=== PATIENT | male | born 1940 | race Caucasian/White ===

== ENCOUNTER 2018-01-02 14:47 | Observation (INO) | payer MEDICARE, OTHER ==
--- NOTE | 2018-01-02 15:33 | PCM.HP ---
H&P History of Present Illness - General Date of Service: 01/02/18 Source of Information: Patient, Old Records - History of Present Illness Initial Comments - Free Text/Narative: 77 yo male, h/o HTN, CLL, BPH, presents with 3 days of abdominal pain, which started vague, but soon localized to the RLQ. Pain has gotten progressively worse. Denies nausea/emesis. Has had subjective fevers and chills. Denies diarrhea/constipation. Patient was seen in the [facility], where a CT scan was obtained, demonstrating appendicitis. He was then transferred to [facility] to undergo surgical evaluation. Last meal was last night (over 12 hours ago). Last colonoscopy was in 2014 (per patient's , was normal). Right Lower Abdomen Pain Score (Numeric/FACES): 6 - Related Data Allergies/Adverse Reactions: Allergies Allergy/AdvReac Type Severity Reaction Status Date / Time No Known Allergies Allergy Verified 01/02/18 14:53 Home Medications: Home Meds Aspirin [Ecotrin] 81 mg PO DAILY 01/02/18 [History] Calcium Carbonate [Calcium] 1,250 mg PO DAILY 01/02/18 [History] Carvedilol [Coreg] 3.125 mg PO BID 01/02/18 [History] Dutasteride [Avodart] 0.5 mg PO DAILY 01/02/18 [History] Flaxseed 1 dose PO DAILY 01/02/18 [History] Lactobacillus Acidophilus [Acidophilus Lactobacillus] 1 tab PO DAILY 01/02/18 [ History] Lutein 20 mg PO DAILY 01/02/18 [History] Omeprazole 20 mg PO DAILY 01/02/18 [History] Psyllium [Metamucil] 1 dose PO BEDTIME 01/02/18 [History] Rosuvastatin [Crestor] 5 mg PO ASDIRECTED 01/02/18 [History] Tamsulosin [Flomax] 2 tab PO DAILY 01/02/18 [History] Ubidecarenone [Co Q-10] 200 mg PO DAILY 01/02/18 [History] Past Medical History Cardiovascular History: Reports: Heart Failure (mild CHF), Hypertension, DC ( patient denies) Gastrointestinal History: Reports: GERD Genitourinary History: Reports: BPH Oncologic (Cancer) History: Reports: Leukemia (CLL) Other Oncologic History: CLL - Past Surgical History HEENT Surgical History: Reports: Other (See Below) Other HEENT Surgeries/Procedures: eye surgery GI Surgical History: Reports: Colonoscopy (2014 (patient's reports was normal)), EGD, Hernia, Inguinal (LEFT INGUINAL HERNIA REPAIR), Hernia Repair/ Other (UMBILICAL HERNIA REPAIR X2 (2014, 2003)) Other GI Surgeries/Procedures: ventral and umbilical hernias Musculoskeletal Surgical History: Reports: Shoulder Surgery (LEFT shouder arthroscopy) Social & Family History - Tobacco Use Smoking Status *Q: Former Smoker (QUIT OVER 50 YEARS AGO.) Used Tobacco, but Quit: Yes Month/Year Tobacco Last Used: 1965 - Caffeine Use Caffeine Use: Reports: None - Alcohol Use Alcohol Use History: No - Recreational Drug Use Recreational Drug Use: No - Living Situation & Occupation Living situation: Reports: , with Family (LIVES WITH .) H&P Review of Systems - Review of Systems: Review Of Systems: ROS reveals no pertinent complaints other than HPI. Exam - Exam Exam: See Below - Vital Signs Vital Signs: Last Vital Signs Temp 37.1 C 01/02/18 14:51 Pulse 88 01/02/18 14:51 Resp 18 01/02/18 14:51 BP 138/63 01/02/18 14:51 Pulse Ox 95 01/02/18 14:51 Weight: 83.461 kg - Exam General: Alert, Oriented, Cooperative HEENT: Conjunctiva Clear Neck: Supple. No: Lymphadenopathy Lungs: Clear to Auscultation, Normal Respiratory Effort Cardiovascular: Regular Rate, Regular Rhythm, Normal S1, Normal S2. No: Systolic Murmur GI/Abdominal Exam: Soft, No Distention, Tender (TENDER TO THE RLQ), Other (WELL- HEALED SURGICAL SCAR TO THE UMBILICUS) Extremities: Normal Inspection, No Pedal Edema Neuro Extensive - Mental Status: Alert, Oriented x3, Normal Mood/Affect, Normal Cognition, Memory Intact Psychiatric: Alert, Normal Affect, Normal Mood - Patient Data Lab Results Last 24 hrs: Labs from [facility] Glucose 102 BUN 15 Cr 1.0 Na 136 K 4.4 Cl 101 CO2 27 Ca 8.3 WBC 24 (baseline in November 2017 was 17.2) Hb 14.6 Hct 44 Plt 150 Abs Lymph 13 (H) Abs Seg Neut 9.5 (H) Imaging Impressions Last 24 hrs: CT scan Abd/pelvis with IV contrast: Dilated and distended appendix with proximal fecalith. Problem List Initiated/Reviewed/Updated: Yes Assessment/Plan Comment:: 77 yo male, h/o HTN, CHF, BPH, CLL (baseline WBC was 17k, today was 24k), GERD, presents with acute appendicitis. CT scan reviewed, which demonstrates findings consistent with appendicitis. Also, umbilical hernia containing bowel. - Patient was consented for laparoscopic appendectomy, possible open. Indications, risks, and benefits were discussed with the patient in detail. Risks include bleeding, infection, damage to surrounding structures, need for additional procedures, DVT/PE, DC, CVA, and . - NPO, IV fluids, IV cefoxitin confectionery cooker to the OR. - Given h/o CLL, will administer heparin 5000 units SQ pre-operatively for VTE prophylaxis. Will also have SCD's. - Patient also with umbilical hernia, with evidence of bowel in the hernia sac on CT scan. Patient without pain tenderness at umbilical hernia. No indication for emergent repair. This can be managed after resolution of his appendicitis and recovery post-op. 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 Patient does not able to walk up two flights of stairs without CP/SOB. He denies h/o DC/CVA. Fermin Chinchilla M.D., F.A.C.S General Surgery Pager: [phone]
[2018-01-02] MEDS ORDERED: Famotidine 20 MG/2 ML SDV IVPUSH ONE (15:42)
[2018-01-02] MEDS ORDERED: Metoclopramide 10 MG/2 ML SDV IVPUSH ONE (15:43)
[2018-01-02] MEDS ORDERED: Lactated Ringers 1,000 ML IV ONE (15:43)
[2018-01-02] MEDS ORDERED: cefOXitin 2 GM in Premix Bag 1 BAG IV ONE (16:08)
--- NOTE | 2018-01-02 16:08 | PCM.PREANE ---
Preanesthetic Assessment - Anesthesia/Transfusion/Family Hx Anesthesia History: Prior Anesthesia Reaction Type of Anesthesia Reaction: Urinary Retention (With all previous surgeries. Self caths at home. ) Family History of Anesthesia Reaction: No Transfusion History: No Prior Transfusion(s) Intubation History: Unknown - Review of Systems General: Fatigue, Malaise, Appetite Pulmonary: No Symptoms Cardiovascular: Lightheadedness (One spell in June. Went through a work up with Dr. Tinajero. Everything was negative. Hasn't had a spell since. ), Other ( Patient states he has mild CHF. Has had a negative stress test. ) Gastrointestinal: Abdominal Pain, Decreased Appetite, Nausea Neurological: No Symptoms Other: Reports: None - Physical Assessment NPO Status Date: 01/01/18 NPO Status Time: 18:00 (Contrast at 1400 ) O2 Sat by Pulse Oximetry: 95 Respiratory Rate: 18 Vital Signs: Last Vital Signs Temp 37.1 C 01/02/18 14:51 Pulse 88 01/02/18 14:51 Resp 18 01/02/18 14:51 BP 138/63 01/02/18 14:51 Pulse Ox 95 01/02/18 14:51 Height: 1.83 m Weight: 83.461 kg ASA Class: 3E Mental Status: Alert & Oriented x3 Airway Class: Mallampati = 2 Dentition: Reports: Normal Dentition Thyro-Mental Finger Breadths: 3 Mouth Opening Finger Breadths: 3 ROM/Head Extension: Full Lungs: Clear to Auscultation, Normal Respiratory Effort Cardiovascular: Regular Rate, Regular Rhythm - Lab Values: From [place]. Reviewed. - Imaging/EKG Impressions: SR with LBBB - Allergies Allergies/Adverse Reactions: Allergies Allergy/AdvReac Type Severity Reaction Status Date / Time No Known Allergies Allergy Verified 01/02/18 14:53 - Anesthesia Plan Beta Yesica: Carvedilol Med Last Dose Date: 01/01/18 Med Last Dose Time: 09:00 - Acknowledgements Anesthesia Type Planned: General Anesthesia Pt an Appropriate Candidate for the Planned Anesthesia: Yes Alternatives and Risks of Anesthesia Discussed w Pt/Guardian: Yes Pt/Guardian Understands and Agrees with Anesthesia Plan: Yes Additional Comments: Dr. Carney notified of EF of 39% noted on report for 2014. Patient states he has great functional capacity. Can walk two flights of stairs. Denies chest pain. Dr. Carney wishes to proceed. Patient wishes to proceed. PreAnesthesia Questionnaire Oncologic (Cancer) History: Reports: Leukemia Other Oncologic History: CLL - Past Surgical History HEENT Surgical History: Reports: Other (See Below) Other HEENT Surgeries/Procedures: eye surgery GI Surgical History: Reports: Colonoscopy, EGD, Hernia Repair/Other Other GI Surgeries/Procedures: ventral and umbilical hernias Musculoskeletal Surgical History: Reports: Shoulder Surgery - SUBSTANCE USE Smoking Status *Q: Former Smoker Recreational Drug Use History: No - HOME MEDS Home Medications: Home Meds Aspirin [Ecotrin] 81 mg PO DAILY 01/02/18 [History] Calcium Carbonate [Calcium] 1,250 mg PO DAILY 01/02/18 [History] Carvedilol [Coreg] 3.125 mg PO BID 01/02/18 [History] Dutasteride [Avodart] 0.5 mg PO DAILY 01/02/18 [History] Flaxseed 1 dose PO DAILY 01/02/18 [History] Lactobacillus Acidophilus [Acidophilus Lactobacillus] 1 tab PO DAILY 01/02/18 [ History] Lutein 20 mg PO DAILY 01/02/18 [History] Omeprazole 20 mg PO DAILY 01/02/18 [History] Psyllium [Metamucil] 1 dose PO BEDTIME 01/02/18 [History] Rosuvastatin [Crestor] 5 mg PO ASDIRECTED 01/02/18 [History] Tamsulosin [Flomax] 2 tab PO DAILY 01/02/18 [History] Ubidecarenone [Co Q-10] 200 mg PO DAILY 01/02/18 [History] - CURRENT (IN HOUSE) MEDS Current Meds: Current Medications Lactated Ringer's (Ringers, Lactated) 1,000 mls @ 999 mls/hr IV .BOLUS ONE Stop: 01/02/18 16:43 Discontinued Medications Famotidine (Pepcid) 20 mg IVPUSH ONETIME ONE Stop: 01/02/18 15:43 Metoclopramide HCl (Reglan) 5 mg IVPUSH ONETIME ONE Stop: 01/02/18 15:44
[2018-01-02] MEDS ORDERED: Heparin Sodium 5,000 Units/ML Vial SUBCUT ONE (16:09)
[2018-01-02] MEDS ORDERED: Lactated Ringers 1,000 ML ONE (16:16)
[2018-01-02] MEDS ORDERED: Bupivacaine 0.5% 30 ML SDV ONE (16:16)
[2018-01-02] MEDS ORDERED: Lidocaine 1% with EPINEPHrine 1:100,000 20 ML MDV ONE (16:16)
[2018-01-02] MEDS ORDERED: Propofol 200 MG/20 ML SDV ONE (16:16)
[2018-01-02] MEDS ORDERED: fentaNYL 250 MCG/5 ML SDV ONE (16:16)
[2018-01-02] MEDS ORDERED: Neostigmine Methylsulfate 1 MG/ML 5 ML Syringe ONE (17:19)
[2018-01-02] MEDS ORDERED: Dexamethasone 4 MG/ML 5 ML MDV ONE (17:19)
[2018-01-02] MEDS ORDERED: Rocuronium 50 MG/5 ML Vial ONE (17:19)
[2018-01-02] MEDS ORDERED: Phenylephrine/Normal Saline 100 MCG/ML 10 ML Syringe ONE (17:19)
[2018-01-02] MEDS ORDERED: Lidocaine 1% 4 ML ONE (17:19)
[2018-01-02] MEDS ORDERED: Succinylcholine/Normal Saline 100 MG/5 ML Syringe ONE (17:19)
[2018-01-02] MEDS ORDERED: Ondansetron 4 MG/2 ML SDV ONE (17:19)
[2018-01-02] MEDS ORDERED: Ondansetron 4 MG/2 ML SDV IVPUSH PRN (17:20)
[2018-01-02] MEDS ORDERED: diphenhydrAMINE 50 MG/ML SDV IVPUSH PRN (17:20)
[2018-01-02] MEDS ORDERED: fentaNYL 100 MCG/2 ML SDV IVPUSH PRN (17:20)
[2018-01-02] MEDS ORDERED: HYDROmorphone 0.5 MG/0.5 ML Syringe IVPUSH PRN (17:30)
[2018-01-02] MEDS ORDERED: HYDROmorphone 0.5 MG/0.5 ML Syringe ONE (18:16)
[2018-01-02] MEDS ORDERED: Metoprolol Tartrate 5 MG/5 ML SDV ONE (18:25)
--- NOTE | 2018-01-02 18:41 | PCM.POSTAN ---
POST ANESTHESIA ASSESSMENT - MENTAL STATUS Mental Status: Alert, Oriented - VITAL SIGNS Pulse Rate: 70 SaO2: 96 Resp Rate: 13 Blood Pressure: 128/70 Temperature: 37.3 C - RESPIRATORY Respiratory Status: Respiratory Rate WNL, Airway Patent, O2 Saturation Stable, Supplemental Oxygen - CARDIOVASCULAR CV Status: Pulse Rate WNL, Blood Pressure Stable - GASTROINTESTINAL GI Status: No Symptoms - PAIN Pain Score: 0 - POST OP HYDRATION Hydration Status: Adequate & Stable
[2018-01-02] MEDS ORDERED: HYDROmorphone 0.5 MG/0.5 ML SYRINGE IVPUSH PRN (18:52)
--- NOTE | 2018-01-02 18:57 | PCM.OPNOTE ---
- General Post-Op/Procedure Note Date of Surgery/Procedure: 01/02/18 Operative Procedure(s): laparoscopic appendectomy Findings: Inflamed and thickened appendix, without obvious perforation. Thickened and inflamed mesoappendix was divided using Ligasure. Oozing from the mesoappendiceal stump (hemostasis with Ligasure and Surgicel). A 3x3 cm umbilical hernia, without incarceration/obstruction. Pre Op Diagnosis: acute appendicitis Post-Op Diagnosis: acute appendicitis Anesthesia Technique: General LMA Primary Surgeon: Fermin Chinchilla Anesthesia Provider: Mercedez Damon Pathology: Appendix Fluid Replacement, Intraop: 1,500 (crystalloid) Output, Urine Amount: 350 EBL in mLs: 100 Complications: None Condition: Good Free Text/Narrative:: Indications for surgery: The patient is a 77 yo male, h/o CLL, HTN, HLD, GERD, who presents with worsening abdominal pain over the past [address] scan revealed evidence of appendiceal inflammation, as well as an umbilical hernia containing bowel (The patient had two prior umbilical hernia repairs). The patient was consented for laparosocpic appendectomy, possible open. possible other indicated procedures. Indications, risks, and benefits were discussed with the patient in detail. Description of procedure: After surgical consent was verified, the patient was brought to the main OR. Anesthesia performed general endotracheal intubation without complications. Appropriate padding and straps were placed. SCD's were on and functioning. Perioperative anitbiotic (cefoxitin IV) was administered. Given his history of CLL, a perioperatiev dose of SQ heparin 5000 units was given for VTE prophylaxis. A Daley catheter and OG tube were inserted. A surgical time-out was performed to verify proper patient, proper site, and proper procedure. Local anesthetic (1:1 solution of 1% lidocaine with epinephrine) was injected at Yee's point in the LUQ. A 5 mm incision was made, and a Veress needle was inserted. The abdomen was insufflated to 15 mmHg without complications. Using the Optview technique, a 5 mm trocar was inserted. The laparoscope was inserted , and there was no evidence of intra-abdominal injury from trocar placement. Additional trocars were placed: a 12 mm trocar in the left lower quadrant and a 5 mm trocar in the suprapubic region. The abdomen was inspected and there was no evidence of bowel adhesed to the hernia sac. The hernia sac at the umbilical region could be seen laparoscopically, and the defect was estimated to be about 3 cm in diameter, round. There was also evidence of mesh and tacks in the LEFT inguinal region, seen laparoscopically. The patient was re-positioned to Trendelenburg with LEFT side down. The appendix was identified and noted to be thickened and inflamed, without obvious evidence of perforation. There were inflammatory adhersions which were bluntly taken down to mobilize the appendix. A window was made in the mesoappendix at the appendiceal base. A 35 mm blue load laparoscopic stapler was used to divide the appendiceal base. The mesoappendix was notably thickened and inflamed, so the decision was made to divide the mesoappendix with a Ligasure device. The mesoappendiceal stump had some bleeding, which was initially challenging to control. Hemostasis was eventually achieved with Ligasure, along with placement of Surgicel. The appendix was placed in an Endocatch bag and removed through the 12 mm trocar site. Light irritation was performed, and all intra-abdominal fluid and blood was suctioned out. The pelvis was inspected, and excess fluid was suctioned out. The 12 mm trocar site was closed with an interrupted 0-Vicryl suture x2 via a transfascial suture passer. Remaining local anesthetic was injected at the trocar sites (total used througout the case was 20 cc). The suprapubic trocar was removed under direct visualization, and the abdomen was allowed to desufflate. The skin was closed with interrupted 4-0 Monocryl and covered with Dermabond. The patient tolerated the procedure well, was extubated, and transported to the PACU in stable condition. At the end of the case, all needle, instrument, and gauze counts were correct. The Daley catheter and OG tube were removed. The appendix was inspected on the back table, and it appeared thickened and injected , without discrete mass. A fecalith could be palpated at the proximal aspect of the appendix. I was presented and scrubbed for the entirety of the case. Fermin Chinchilla M.D., F.A.C.S. General Surgery Pager: [phone]
[2018-01-02] MEDS: cefOXitin 2 GM in Premix Bag 1 BAG IV SCH (23:08)
[2018-01-03] MEDS: cefOXitin 2 GM in Premix Bag 1 BAG IV SCH ×2 (06:07→11:52)
[2018-01-03] MEDS: Acetaminophen/oxyCODONE 325-5 MG Tab PO PRN ×2 (06:59→13:32)
--- NOTE | 2018-01-03 10:11 | PCM.DCSUM1 ---
Discharge Summary - Hospital Course Free Text/Narrative:: 77 yo male, h/o CLL, HTN, BPH, presents with acute appendicitis, taken to the OR for urgent laparoscoipc appendectomy on 02Jan2018. He did well post- operatively and was discharged home on POD#1 (03Jan2018). Diagnosis: Stroke: No Modified Gilberto Scale: No Symptoms at All Modified Camuy Scale Score: 0 - Discharge Data Discharge Date: 01/03/18 Discharge Disposition: Home, Self-Care 01 Condition: Good - Patient Summary/Data Operative Procedure(s) Performed: laparoscopic appendectomy Recommended Follow-up Testing/Procedures: Colonoscopy - schedule in about 2-3 months - Patient Instructions Diet: Regular Diet as Tolerated Activity: No Lifting Over 10 Pounds, No Strenuous Activities Driving: Do Not Drive (Until off all pain medication.) Showering/Bathing: May Shower, No Tub Bathing/Swimming - Discharge Plan Prescriptions/Med Rec: Docusate Sodium [Colace] 100 mg PO BID #30 cap oxyCODONE HCl/Acetaminophen [Percocet 5-325 mg Tablet] 1 each PO Q4H PRN #30 tablet PRN Reason: Pain Home Medications: Home Meds Aspirin [Ecotrin] 81 mg PO DAILY 01/02/18 [History] Calcium Carbonate [Calcium] 1,250 mg PO DAILY 01/02/18 [History] Carvedilol [Coreg] 3.125 mg PO BID 01/02/18 [History] Dutasteride [Avodart] 0.5 mg PO DAILY 01/02/18 [History] Flaxseed 1 dose PO DAILY 01/02/18 [History] Lactobacillus Acidophilus [Acidophilus Lactobacillus] 1 tab PO DAILY 01/02/18 [ History] Lutein 20 mg PO DAILY 01/02/18 [History] Omeprazole 20 mg PO DAILY 01/02/18 [History] Psyllium [Metamucil] 1 dose PO BEDTIME 01/02/18 [History] Rosuvastatin [Crestor] 5 mg PO ASDIRECTED 01/02/18 [History] Tamsulosin [Flomax] 2 tab PO DAILY 01/02/18 [History] Ubidecarenone [Co Q-10] 200 mg PO DAILY 01/02/18 [History] Docusate Sodium [Colace] 100 mg PO BID #30 cap 01/03/18 [Rx] oxyCODONE HCl/Acetaminophen [Percocet 5-325 mg Tablet] 1 each PO Q4H PRN #30 tablet 01/03/18 [Rx] Forms: ED Department Discharge Referrals: Aroldo Tinajero MD [Primary Care Provider] - Fermin Chinchilla MD [Emergency Provider] - (Schedle an appointment in one week ([place], 10Jan2018).) - Discharge Summary/Plan Comment DC Time >30 min.: Yes - General Info Date of Service: 01/03/18 Subjective Update: No acute overnight events. Patient reports improvement in pain compared to before surgery. He tolerated liquids this morning well. He desires solid food. - Patient Data Vitals - Most Recent: Last Vital Signs Temp 36.4 C 01/03/18 08:44 Pulse 69 01/03/18 08:44 Resp 18 01/03/18 08:44 BP 102/61 01/03/18 08:44 Pulse Ox 95 01/03/18 08:44 Weight - Most Recent: 84.623 kg I&O - Last 24 hours: Intake & Output 01/02/18 01/03/18 01/03/18 22:59 06:59 14:59 Intake Total 50 1700 Output Total 425 750 Balance -375 950 Med Orders - Current: Current Medications Diphenhydramine HCl (Benadryl) 25 mg IVPUSH Q6H PRN PRN Reason: Pruritis Fentanyl (Sublimaze) 50 mcg IVPUSH Q5M PRN PRN Reason: Pain Hydromorphone HCl (Dilaudid) 0.5 mg IVPUSH ASDIRECTED PRN PRN Reason: SEVERE PAIN Hydromorphone HCl (Dilaudid) 0.4 mg IVPUSH Q2H PRN PRN Reason: Pain Cefoxitin Sodium 2 gm/ Premix 50 mls @ 100 mls/hr IV Q6HR OLGA LIDIA Last Admin: 01/03/18 06:07 Dose: 100 mls/hr Ondansetron HCl (Zofran) 4 mg IVPUSH ONETIME PRN PRN Reason: Nausea/Vomiting Last Admin: 01/02/18 23:09 Dose: 4 mg Oxycodone/Acetaminophen (Percocet 325-5 Mg) 1 tab PO Q4H PRN PRN Reason: Pain Last Admin: 01/03/18 06:59 Dose: 1 tab Discontinued Medications Bupivacaine HCl (Marcaine 0.5%) Confirm Administered Dose 30 ml .ROUTE .STK-MED ONE Stop: 01/02/18 16:17 Last Admin: 01/02/18 17:03 Dose: 30 ml Dexamethasone (Dexamethasone) Confirm Administered Dose 20 mg .ROUTE .STK-MED ONE Stop: 01/02/18 17:20 Famotidine (Pepcid) 20 mg IVPUSH ONETIME ONE Stop: 01/02/18 15:43 Last Admin: 01/02/18 16:01 Dose: 20 mg Fentanyl (Sublimaze) Confirm Administered Dose 250 mcg .ROUTE .STK-MED ONE Stop: 01/02/18 16:17 Glycopyrrolate () Confirm Administered Dose 1 mg .ROUTE .STK-MED ONE Stop: 01/02/18 17:20 Heparin Sodium (Porcine) (Heparin Sodium) 5,000 units SUBCUT ONETIME ONE Stop: 01/02/18 16:10 Last Admin: 01/02/18 16:35 Dose: 5,000 units Hydromorphone HCl (Dilaudid) Confirm Administered Dose 0.5 mg .ROUTE .STK-MED ONE Stop: 01/02/18 18:17 Lactated Ringer's (Ringers, Lactated) 1,000 mls @ 999 mls/hr IV .BOLUS ONE Stop: 01/02/18 16:43 Last Admin: 01/02/18 15:58 Dose: 999 mls/hr Cefoxitin Sodium 2 gm/ Premix 50 mls @ 100 mls/hr IV ONETIME ONE Stop: 01/02/18 16:37 Last Admin: 01/02/18 16:33 Dose: 100 mls/hr Lactated Ringer's (Ringers, Lactated) Confirm Administered Dose 1,000 mls @ as directed .ROUTE .STK-MED ONE Stop: 01/02/18 16:17 Lidocaine HCl (Xylocaine-Mpf 1%) Confirm Administered Dose 4 mls @ as directed .ROUTE .STK-MED ONE Stop: 01/02/18 17:20 Lidocaine/Epinephrine (Xylocaine 1% With Epinephrine 1:100,000) Confirm Administered Dose 20 ml .ROUTE .STK-MED ONE Stop: 01/02/18 16:17 Last Admin: 01/02/18 17:03 Dose: 20 ml Metoclopramide HCl (Reglan) 5 mg IVPUSH ONETIME ONE Stop: 01/02/18 15:44 Last Admin: 01/02/18 15:59 Dose: 5 mg Metoprolol Tartrate (Lopressor) Confirm Administered Dose 5 mg .ROUTE .STK-MED ONE Stop: 01/02/18 18:26 Neostigmine Methylsulfate (Neostigmine) Confirm Administered Dose 5 mg .ROUTE .STK-MED ONE Stop: 01/02/18 17:20 Ondansetron HCl (Zofran) Confirm Administered Dose 4 mg .ROUTE .STK-MED ONE Stop: 01/02/18 17:20 Phenylephrine HCl (Phenylephrine In Ns 100 Mcg/Ml) Confirm Administered Dose 1 mg .ROUTE .STK-MED ONE Stop: 01/02/18 17:20 Propofol (Diprivan 20 Ml) Confirm Administered Dose 400 mg .ROUTE .STK-MED ONE Stop: 01/02/18 16:17 Rocuronium [place] (Zemuron) Confirm Administered Dose 50 mg .ROUTE .STK-MED ONE Stop: 01/02/18 17:20 Succinylcholine Chloride (Succinylcholine In Ns Pf) Confirm Administered Dose 100 mg .ROUTE .STK-MED ONE Stop: 01/02/18 17:20 - Exam General: Reports: Alert, Oriented GI/Abdominal Exam: Soft, Tender (appropriate post-op tenderness), Other ( incisions C/D/I with Dermabond) Skin: Reports: Warm, Intact
--- NOTE | 2018-01-03 10:27 | PCM48HPAN ---
Post Anesthesia Note - EVALUATION WITHIN 48HRS OF ANESTHETIC Vital Signs in Normal Range: Yes Patient Participated in Evaluation: Yes Respiratory Function Stable: Yes Airway Patent: Yes Cardiovascular Function Stable: Yes Hydration Status Stable: Yes Pain Control Satisfactory: Yes Nausea and Vomiting Control Satisfactory: Yes Mental Status Recovered: Yes - COMMENTS/OBSERVATIONS Free Text/Narrative:: Patient denies any anesthetic complications
[2018-01-03 11:49] VITALS: BP 112/61
== END 2018-01-03 13:37 | disposition home or self-care (01) ==
LOC: JD.ED 14:47 → JD.SDS 16:08 → JD.MS 18:55
PROVIDERS: ADMIT Student in an Organized Health Care Education/Training Program; ATTEND Student in an Organized Health Care Education/Training Program
DX: K35.80 Unspecified acute appendicitis (principal); K42.9 Umbilical hernia without obstruction or gangrene; I11.0 Hypertensive heart disease with heart failure; I50.9 Heart failure, unspecified; E78.5 Hyperlipidemia, unspecified; K21.9 Gastro-esophageal reflux disease without esophagitis; Z87.891 Personal history of nicotine dependence; Z79.82 Long term (current) use of aspirin; Z79.899 Other long term (current) drug therapy
CPT/HCPCS: 44970; 93005; 94760; 96361; 96374; 96375; 99285; A9270; J0330; J0694; J1100; J1170; J1644; J2001; J2405; J2710; J2765; J3010; J7120; 00840; J2704; J3490

== ENCOUNTER 2018-03-22 09:34 | Day surgery (SDC) | payer MEDICARE, OTHER ==
[~2018-03-22 09:34] MED LIST: Lactated Ringers 1,000 ML IV SCH; Lidocaine 1%/Sod Bicarbonate in NS 8.4% 1 ML Syringe IDERM PRN; Sodium Chloride 0.9% 10 ML Syringe FLUSH PRN
--- NOTE | 2018-03-22 10:19 | PCM.PREANE ---
Preanesthetic Assessment - Procedure Proposed Procedure: Screening colonoscopy - Anesthesia/Transfusion/Family Hx Anesthesia History: Prior Anesthesia Without Reaction Family History of Anesthesia Reaction: No Transfusion History: No Prior Transfusion(s) Intubation History: Unknown Additional History: CLL - Review of Systems General: No Symptoms Pulmonary: No Symptoms Cardiovascular: Other (HTN, HLD) Gastrointestinal: No Symptoms Neurological: No Symptoms Other: Reports: None - Physical Assessment NPO Status Date: 03/23/18 NPO Status Time: 00:00 Pulse: 58 O2 Sat by Pulse Oximetry: 96 Respiratory Rate: 16 Blood Pressure: 107/61 Temperature: 36.7 C Height: 1.83 m Weight: 81.647 kg ASA Class: 2 Mental Status: Alert & Oriented x3 Airway Class: Mallampati = 1 Dentition: Reports: Normal Dentition Thyro-Mental Finger Breadths: 3 Mouth Opening Finger Breadths: 3 ROM/Head Extension: Full Lungs: Clear to Auscultation, Normal Respiratory Effort Cardiovascular: Regular Rate, Regular Rhythm - Allergies Allergies/Adverse Reactions: Allergies Allergy/AdvReac Type Severity Reaction Status Date / Time atorvastatin [From Lipitor] Allergy Cannot Verified 03/21/18 12:51 Remember - Blood Blood Available: No Product(s) Available: None - Anesthesia Plan Pre-Op Medication Ordered: None - Acknowledgements Anesthesia Type Planned: MAC Pt an Appropriate Candidate for the Planned Anesthesia: Yes Alternatives and Risks of Anesthesia Discussed w Pt/Guardian: Yes Pt/Guardian Understands and Agrees with Anesthesia Plan: Yes PreAnesthesia Questionnaire HEENT History: Reports: Hard of Hearing, Impaired Vision Cardiovascular History: Reports: Heart Failure, Hypertension, [place] Respiratory History: Reports: None Gastrointestinal History: Reports: Diverticulosis Genitourinary History: Reports: BPH, Prostate Disorder 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 Neurological History: Reports: None Psychiatric History: Reports: None Endocrine/Metabolic History: Reports: None Hematologic History: Reports: Other (See Below) Other Hematologic History: cll Immunologic History: Reports: None Oncologic (Cancer) History: Reports: Leukemia Other Oncologic History: CLL Dermatologic History: Reports: None - Past Surgical History Head Surgeries/Procedures: Reports: None HEENT Surgical History: Reports: Cataract Surgery, Other (See Below) Other HEENT Surgeries/Procedures: eye surgery Cardiovascular Surgical History: Reports: None Respiratory Surgical History: Reports: None GI Surgical History: Reports: Colonoscopy, EGD, Hernia Repair/Other Other GI Surgeries/Procedures: ventral and umbilical hernias Female Surgical History: Reports: None Male Surgical History: Reports: None Endocrine Surgical History: Reports: None Neurological Surgical History: Reports: None Musculoskeletal Surgical History: Reports: Shoulder Surgery Dermatological Surgical History: Reports: None - SUBSTANCE USE Smoking Status *Q: Former Smoker Recreational Drug Use History: No - HOME MEDS Home Medications: Home Meds Aspirin [Ecotrin] 81 mg PO DAILY 01/02/18 [History] Calcium Carbonate [Calcium] 600 mg PO DAILY 01/02/18 [History] Carvedilol [Coreg] 3.125 mg PO BID 01/02/18 [History] Dutasteride [Avodart] 0.5 mg PO DAILY 01/02/18 [History] Flaxseed 1 dose PO DAILY 01/02/18 [History] Lactobacillus Acidophilus [Acidophilus Lactobacillus] 1 tab PO DAILY 01/02/18 [ History] Lutein 20 mg PO DAILY 01/02/18 [History] Omeprazole 20 mg PO DAILY 01/02/18 [History] Psyllium [Metamucil] 1 dose PO BEDTIME 01/02/18 [History] Rosuvastatin [Crestor] 5 mg PO MOWEFR 01/02/18 [History] Tamsulosin [Flomax] 1 tab PO DAILY 01/02/18 [History] Ubidecarenone [Co Q-10] 200 mg PO DAILY 01/02/18 [History] - CURRENT (IN HOUSE) MEDS Current Meds: Current Medications Lactated Ringer's (Ringers, Lactated) 1,000 mls @ 125 mls/hr IV ASDIRECTED OLGA LIDIA Stop: 03/22/18 23:00 Lidocaine/Sodium Bicarbonate (Buffered Lidocaine 1% In Ns 8.4%) 0.25 ml IDERM ONETIME PRN PRN Reason: Prior to IV Start Stop: 03/22/18 18:00 Sodium Chloride (Saline Flush) 10 ml FLUSH ASDIRECTED PRN PRN Reason: Keep Vein Open Stop: 03/22/18 18:00
[2018-03-22] MEDS ORDERED: Propofol 200 MG/20 ML SDV ONE (10:22)
[2018-03-22] MEDS ORDERED: fentaNYL 100 MCG/2 ML SDV ONE (10:22)
--- NOTE | 2018-03-22 12:26 | PCM.OPNOTE ---
- General Post-Op/Procedure Note Date of Surgery/Procedure: 03/22/18 Operative Procedure(s): colonoscopy with biopsy Findings: 1) moderate sigmoid diverticulosis 2) flat rectal polyp Pre Op Diagnosis: recent history of acute appendicitis, s/p appendectomy Post-Op Diagnosis: 1) sigmoid diverticulosis. 2) rectal polyp Anesthesia Technique: MAC Primary Surgeon: Fermin Chinchilla Anesthesia Provider: Chris Driver Pathology: rectal polyp Complications: None Condition: Good Free Text/Narrative:: Indications for surgery: The patient is 77 yo male, had a recent episode of appendicitis s/p appendectomy. His last colonoscopy was in 2014, at which time, he was told to repeat in 10 years. Given his recent episode of appendicitis, he was recommended to undergo repeat colonoscopy. The patient was consented for colonoscopy with possible biopsy. Indications, risks, and benefits were discussed with the patient in detail. Description of procedure: After surgical consent was verified, the patient was brought to the main OR. A surgical time-out was performed to verify proper patient and proper procedure. Anesthesia performed monitored anesthesia care. A digital rectal exam was performed, which was normal. The colonoscope was inserted into the anus and advanced through the colon to the cecum. The terminal ileum was intubated, and it appeared normal. Location of the cecum was confirmed by presence of the appendiceal orifice and by presence of the ileocecal valve. The scope was then withdrawn, with inspection of the colonic mucosa. Retroflexion was performed in the rectum. There was moderate sigmoid diverticulosis. There was a 6 mm flat polyp in the rectum, at approximate 15 cm, removed by cold forceps polypectomy. The remainder of the colon and rectum was normal. Withdrawal time was 11 minutes , including time spent performing polypectomy. Blood loss was minimal. Prep was good. The patient tolerated the procedure well, was brought out of anesthesia, and transported to the PACU in stable condition. Fermin Chinchilla M.D., F.A.C.S. General Surgery Pager: [phone]
--- NOTE | 2018-03-22 12:29 | PCM48HPAN ---
Post Anesthesia Note - EVALUATION WITHIN 48HRS OF ANESTHETIC Vital Signs in Normal Range: Yes Patient Participated in Evaluation: Yes Respiratory Function Stable: Yes Airway Patent: Yes Cardiovascular Function Stable: Yes Hydration Status Stable: Yes Pain Control Satisfactory: Yes Nausea and Vomiting Control Satisfactory: Yes Mental Status Recovered: Yes Pulse Rate: 64 SaO2: 96 Resp Rate: 16 Temperature: 36.4 C Blood Pressure: 100/60
[2018-03-22 13:51] VITALS: BP 119/55
== END 2018-03-22 13:30 | disposition home or self-care (01) ==
LOC: JD.SDS 09:34
PROVIDERS: ATTEND Student in an Organized Health Care Education/Training Program
DX: Z12.11 Encounter for screening for malignant neoplasm of colon (principal); D12.8 Benign neoplasm of rectum; K57.30 Diverticulosis of large intestine without perforation or abscess without bleeding; I11.0 Hypertensive heart disease with heart failure; I50.9 Heart failure, unspecified; E78.5 Hyperlipidemia, unspecified; Z87.891 Personal history of nicotine dependence; Z79.82 Long term (current) use of aspirin; Z79.899 Other long term (current) drug therapy; Z90.89 Acquired absence of other organs; Z88.8 Allergy status to other drugs, medicaments and biological substances
CPT/HCPCS: 45380; J2704; J3010; J7120; 00811

== ENCOUNTER 2018-11-03 14:29 | Emergency (ER) | payer MEDICARE, OTHER ==
[2018-11-03 14:59] VITALS: BP 141/67
[2018-11-03] MEDS ORDERED: Sodium Chloride 0.9% 1,000 ML IV SCH (16:00)
--- NOTE | 2018-11-03 16:34 | EDM.PDOC ---
ED HPI GENERAL MEDICAL PROBLEM - General Chief Complaint: Neurological Problem Stated Complaint: DIZZY AND NAUSEA Time Seen by Provider: 11/03/18 15:19 Source of Information: Reports: Patient History Limitations: Reports: No Limitations - History of Present Illness INITIAL COMMENTS - FREE TEXT/NARRATIVE: 78 y/o male presents to ER with cc dizziness and nausea. He states he woke up this morning at 0600 rolled over and felt a sensation like he was "wobbling." He reports when he got up he felt off balance and "he was moving from side to side." He denies any blurred vision, headaches, fever, chills, vomiting. He states he had similar symptoms about 3 years ago. He went to the walk in clinic and they referred him here for further evaluation. His PCP is Dr. Tinajero Onset: Today, Sudden Onset Date: 11/03/18 Onset Time: 06:00 Duration: Intermittent Location: Reports: Head Severity: Mild Improves with: Reports: Rest Worsens with: Reports: Movement Associated Symptoms: Denies: Confusion, Fever/Chills, Syncope, Weakness - Related Data Allergies Allergy/AdvReac Type Severity Reaction Status Date / Time atorvastatin [From Lipitor] Allergy Cannot Verified 11/03/18 14:55 Remember Home Meds: Home Meds Aspirin [Ecotrin] 81 mg PO DAILY 01/02/18 [History] Calcium Carbonate [Calcium] 1,250 mg PO DAILY 01/02/18 [History] Carvedilol [Coreg] 3.125 mg PO BID 01/02/18 [History] Dutasteride [Avodart] 0.5 mg PO DAILY 01/02/18 [History] Flaxseed 1 dose PO DAILY 01/02/18 [History] Lactobacillus Acidophilus [Acidophilus Lactobacillus] 1 tab PO DAILY 01/02/18 [ History] Lutein 20 mg PO DAILY 01/02/18 [History] Omeprazole 20 mg PO DAILY 01/02/18 [History] Psyllium [Metamucil] 1 dose PO BEDTIME 01/02/18 [History] Rosuvastatin [Crestor] 5 mg PO MOWEFR 01/02/18 [History] Tamsulosin [Flomax] 0.4 mg PO BID 01/02/18 [History] Ubidecarenone [Coq-10] 100 mg PO DAILY 07/11/18 [History] Meclizine [Antivert] 25 mg PO BID 30 Days #60 tab.chew 11/03/18 [Rx] Ondansetron [Zofran ODT] 4 mg PO Q6H PRN 6 Days #20 tab.dis 11/03/18 [Rx] Past Medical History HEENT History: Reports: Cataract, Hard of Hearing, Impaired Vision, Other (See Below) Other HEENT History: WEARS GLASSES Cardiovascular History: Reports: Heart Failure, Hypertension Respiratory History: Reports: None Gastrointestinal History: Reports: Colon Polyp, Diverticulosis Genitourinary History: Reports: BPH, Prostate Disorder 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 Neurological History: Reports: None Psychiatric History: Reports: None Endocrine/Metabolic History: Reports: None Hematologic History: Reports: Other (See Below) Other Hematologic History: cll Immunologic History: Reports: None Oncologic (Cancer) History: Reports: Leukemia Other Oncologic History: CLL Dermatologic History: Reports: None - Past Surgical History Head Surgeries/Procedures: Reports: None HEENT Surgical History: Reports: Cataract Surgery, Other (See Below) Other HEENT Surgeries/Procedures: eye surgery Cardiovascular Surgical History: Reports: None Respiratory Surgical History: Reports: None GI Surgical History: Reports: Appendectomy, Colonoscopy, EGD, Hernia Repair/ Other Other GI Surgeries/Procedures: ventral and umbilical hernias Male Surgical History: Reports: None Endocrine Surgical History: Reports: None Neurological Surgical History: Reports: None Musculoskeletal Surgical History: Reports: Shoulder Surgery Oncologic Surgical History: Reports: None Dermatological Surgical History: Reports: None Social & Family History - Family History Family Medical History: Noncontributory - Tobacco Use Smoking Status *Q: Former Smoker Used Tobacco, but Quit: Yes Month/Year Tobacco Last Used: 07/1965 - Caffeine Use Caffeine Use: Reports: None - Recreational Drug Use Recreational Drug Use: No - Living Situation & Occupation Living situation: Reports: , with Family (LIVES WITH .) ED ROS GENERAL - Review of Systems Review Of Systems: See Below Constitutional: Denies: Fever, Chills HEENT: Reports: No Symptoms, Vertigo Respiratory: Reports: No Symptoms Cardiovascular: Reports: No Symptoms Endocrine: Reports: No Symptoms GI/Abdominal: Reports: No Symptoms : Reports: No Symptoms Musculoskeletal: Reports: No Symptoms Skin: Reports: No Symptoms Neurological: Reports: Dizziness. Denies: Headache, Numbness, Syncope, Weakness Psychiatric: Reports: No Symptoms Hematologic/Lymphatic: Reports: No Symptoms Immunologic: Reports: No Symptoms - Physical Exam Exam: See Below Exam Limited By: No Limitations General Appearance: Alert, WD/WN, No Apparent Distress Eye Exam: Bilateral Eye: EOMI, PERRL Ears: Normal External Exam, Normal Canal, Normal TMs, Hearing Loss Nose: Normal Inspection, Normal Mucosa, No Blood Throat/Mouth: Normal Inspection, Normal Lips, Normal Teeth, Normal Gums, Normal Oropharynx, Normal Voice, No Airway Compromise Head Exam: Atraumatic, Normocephalic Neck: Normal Inspection, Supple, Non-Tender, Full Range of Motion Respiratory/Chest: No Respiratory Distress, Lungs Clear, Normal Breath Sounds, No Accessory Muscle Use, Chest Non-Tender Cardiovascular: Normal Peripheral Pulses, Regular Rate, Rhythm, No Edema, No Gallop, No JVD, No Murmur, No Rub Neuro Exam (Abbreviated): Alert, Oriented, CN II-XII Intact, Normal Cognition, Normal Gait, Normal Reflexes, No Motor/Sensory Deficits Course - Vital Signs Last Recorded V/S: Last Vital Signs Temp 98.2 F 11/03/18 14:55 Pulse 52 L 11/03/18 14:55 Resp 20 11/03/18 14:55 BP 141/67 H 11/03/18 14:55 Pulse Ox 97 11/03/18 14:55 - Orders/Labs/Meds Meds: Medications Discontinued Medications Generic Name Dose Route Start Last Admin Trade Name Froylanq PRN Reason Stop Dose Admin Sodium Chloride 1,000 mls @ 999 mls/hr 11/03/18 16:00 Normal Saline IV ASDIRECTED [facility] Meclizine HCl 25 mg 11/03/18 15:56 11/03/18 16:03 Antivert PO 11/03/18 15:57 25 mg NOW STA Administration - Re-Assessments/Exams Free Text/Narrative Re-Assessment/Exam: 11/03/18 17:06 78 y/o male presented to ER with cc vertigo symptoms that started this am. I don't feel he needs further testing or CT at this time. I will discharge home with Meclizine. I will refer him to Dr. Alexis Esteves a ENT in [place]. Instructed to follow up with his PCP. Instructed to return to the ER for any new or acute worsening symptoms. Patient verbalized understanding and is comfortable with plan for discharge. Departure - Departure Time of Disposition: 17:08 Disposition: Home, Self-Care 01 Condition: Good Clinical Impression: Vertigo - Discharge Information Prescriptions: Meclizine [Antivert] 25 mg PO BID 30 Days #60 tab.chew Ondansetron [Zofran ODT] 4 mg PO Q6H PRN 6 Days #20 tab.dis PRN Reason: Nausea Instructions: Vertigo, [id number] Referrals: Aroldo Tinajero MD [Primary Care Provider] - Alexis Esteves MD [Ordering Only Provider] - Forms: ED Department Discharge Additional Instructions: You have been diagnosis with vertigo. Take the Meclizine as needed for symptoms. Follow up with Dr. Esteves for ENT evaluation. Followup with your PCP as needed. Return to the ER for any new or acute worsening symptoms.
== END 2018-11-03 17:25 | disposition home or self-care (01) ==
LOC: JD.ED 14:29
DX: R42 Dizziness and giddiness (principal); I11.0 Hypertensive heart disease with heart failure; I50.9 Heart failure, unspecified; Z87.891 Personal history of nicotine dependence; Z88.8 Allergy status to other drugs, medicaments and biological substances; Z79.82 Long term (current) use of aspirin; Z79.899 Other long term (current) drug therapy
CPT/HCPCS: 99283; A9270

== ENCOUNTER 2018-11-30 22:46 | Emergency (ER) | payer MEDICARE, OTHER ==
[2018-11-30 22:58] VITALS: BP 114/65
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
[2018-11-30] MEDS ORDERED: Lactated Ringers 1,000 ML IV SCH (23:45)
[2018-11-30] MEDS ORDERED: Iohexol 647 MG/ML 100 ML Bottle IVPUSH ONE (23:50)
--- NOTE | 2018-12-01 08:41 | CR ---
Right foot: Four views of the right foot were obtained. Comparison: No previous study. Small plantar spur is seen. Minimal spurring is noted within the talonavicular joint. Anterior calcaneus not optimally seen. No discrete fracture or other bony abnormality is appreciated. Impression: 1. Nothing acute is definitely appreciated on right foot study. 2. Poorly seen anterior calcaneus. If patient has hindfoot symptoms, CT study could then be considered to further evaluate. Diagnostic code #3
--- NOTE | 2018-12-01 08:41 | CR ---
Left femur: AP and lateral views of theleft femur were obtained. Comparison: No prior femur exam. Slight cortical thickening is seen within the proximal fibular shaft compatible with stress reaction. Joint space narrowing is seen within the knee as well as severe joint space narrowing with the left hip. Inferior left hip shows osteophytes. No acute fracture or other abnormality is seen. Impression: 1. Degenerative change. Other incidental findings. 2. Nothing acute is appreciated on left femur study. Diagnostic code #2
--- NOTE | 2018-12-01 08:41 | CT ---
CT chest Technique: Multiple axial sections were obtained from above the lung apices inferiorly through the lung bases. Intravenous contrast was utilized. Comparison: No prior chest imaging is available. Findings: Mediastinum shows no adenopathy. Mild atherosclerotic calcification seen within the abdominal aorta. Moderate coronary artery calcification is seen. No pericardial thickening is seen. Lung window settings were reviewed which show no acute parenchymal change. No pleural effusions or pneumothorax are seen. Bone window settings were reviewed which show slight degenerative change scattered throughout the spine. No acute osseous abnormality is appreciated. Impression: 1. Incidental findings. Nothing acute is appreciated on CT study of the chest. Diagnostic code #2 I agree with preliminary report from [facility], finalized on 12/01/18, 2:[address] abdomen and pelvis Technique: Multiple axial sections were obtained from above the dome of the diaphragm inferiorly through the pubic symphysis. Intravenous contrast was utilized. No oral contrast has been given. Comparison: Prior CT abdomen and pelvis exam of 07/07/18. Findings: Multiple low density findings are seen within the liver which are compatible with cysts. These findings are stable from prior CT study. Low-density lesion is noted within the upper spleen measuring about 2.0 cm in size which appears stable from most recent exam and slightly increased in size from older study from 2015. This is most likely due to benign lesion. Adrenal glands show no nodule. Pancreas is within normal limits. Cysts are noted within both kidneys which are both parapelvic and cortical in location. Small nonobstructing calculi are seen within the left kidney. Pancreas is within normal limits. Aorta shows no aneurysm. No retroperitoneal adenopathy or mesenteric abnormalities are seen. No pelvic mass or adenopathy is seen. No free fluid or inflammatory change is seen within the abdomen or pelvis. Bone window settings were reviewed which show scattered degenerative change within the lumbar spine. No acute osseous abnormality is appreciated. Impression: 1. Liver cysts, low-density lesion within the spleen and renal cysts. These findings are felt to be incidental. 2. Other incidental findings. No acute abnormality is appreciated on CT study of the abdomen and pelvis. Diagnostic code #2 I agree with preliminary report from [facility], finalized on 12/01/18, 2:29 AM Central Time
== END 2018-12-01 02:35 | disposition home or self-care (01) ==
LOC: JD.ED 22:46
DX: S91.114A Laceration without foreign body of right lesser toe(s) without damage to nail, initial encounter (principal); S20.212A Contusion of left front wall of thorax, initial encounter; S30.1XXA Contusion of abdominal wall, initial encounter; S70.12XA Contusion of left thigh, initial encounter; I11.0 Hypertensive heart disease with heart failure; I50.9 Heart failure, unspecified; Z88.8 Allergy status to other drugs, medicaments and biological substances; Z79.82 Long term (current) use of aspirin; Z79.899 Other long term (current) drug therapy; W55.22XA Struck by cow, initial encounter
CPT/HCPCS: 36415; 71260; 73552; 73630; 74177; 80053; 81001; 82550; 83874; 85007; 85027; 96360; 96361; 99284; J7120; Q9967; 99283

== ENCOUNTER 2019-06-03 13:19 | Emergency (ER) | payer MEDICARE, OTHER ==
[2019-06-03 13:31] VITALS: BP 126/67; PULSE 63
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
[2019-06-03] MEDS ORDERED: Rivaroxaban 15 MG Tab PO ONE (14:23)
--- NOTE | 2019-06-03 14:45 | US ---
Left lower extremity deep venous ultrasound: Duplex and color flow imaging was obtained of the left common femoral, proximal greater saphenous, superficial femoral, popliteal, posterior tibial and peroneal veins. Right common femoral vein was also evaluated. Findings: Cystic structure is noted within the popliteal fossa most likely representing a popliteal cyst measuring 4.7 x 2.2 x 1.9 cm in size. Mild subcutaneous edema is seen within the left lower extremity. Normal phasic flow, augmentation and compression is seen within the deep veins. Impression: 1. Cystic structure which is felt compatible with popliteal cyst as noted above. 2. Mild subcutaneous edema is noted within the left lower extremity. 3. No evidence of deep venous thrombosis within the left lower extremity or within the right common femoral vein. Diagnostic code #3
[2019-06-03] MEDS ORDERED: Iopamidol 612 MG/ML 100 ML Bottle IVPUSH ONE (16:35)
[2019-06-03] MEDS ORDERED: Sodium Chloride 0.9% 10 ML Syringe FLUSH ONE (16:35)
--- NOTE | 2019-06-03 17:13 | CT ---
CT abdomen and pelvis Technique: Multiple axial sections were obtained from above the dome of the diaphragm inferiorly through the pubic symphysis. Intravenous contrast was utilized. No oral contrast has been given. Delayed images were also obtained through the bladder. Comparison: Prior CT abdomen and pelvis study of 11/30/18. Findings: Visualized lung bases show nothing acute. Low density lesions are identified within the liver which are felt compatible with cysts which appear stable in appearance from previous exam. Low-density lesion is noted within the spleen this has slightly increased in size from previous exam measuring 2.3 cm x 1.6 cm. On previous study this measures 2.0 cm x 1.5 cm. Previous study thought this to be benign but given the slight increase in size this could possibly represent neoplastic finding. There is a 2nd lesion within the spleen also increased in size which measures 7 mm in size. Adrenal glands show no nodule. Pancreas is within normal limits. Kidneys show symmetric contrast enhancement without hydronephrosis. Cyst is noted within the left kidney measuring about 3.0 cm. Several parapelvic cysts also seen within the left kidney which are believed to be stable. Several cortical cysts are seen within the right kidney which are felt to be stable. Pancreas appears within normal limits. Gallbladder appears to be collapsed. Aorta shows atherosclerotic change without aneurysm. No retroperitoneal adenopathy or mesenteric abnormalities are seen. No pelvic mass or adenopathy is noted. Diverticuli are seen within the sigmoid colon without inflammatory change of diverticulitis. Delayed images shows contrast within the distal ureters and within the bladder. There is a low density lesion within the prostate gland measuring about 2.1 cm in size. Uncertain if this is due to focal area prostate carcinoma or a benign hyperplastic nodule. This is vaguely felt to be present on previous exam but differential remains the same. No free fluid or inflammatory change is seen. Appendix not definitely visualized. Surgical material is seen off the tip of this cecum most likely due to prior appendectomy. Bone window settings were reviewed which shows scattered degenerative change within the spine. No acute osseous finding is appreciated. Impression: 1. Enlarging splenic lesions from previous exam. Difficult to exclude metastatic splenic lesions. 2. Stable cysts within the kidneys and within the liver. 3. Low-density nodule within the prostate gland. This could represent benign or malignant nodule. 3. Other findings which are believed to be incidental. Diagnostic code #9
[2019-06-03] MEDS ORDERED: Furosemide 40 MG Tab PO ONE (17:27)
== END 2019-06-03 17:46 | disposition home or self-care (01) ==
LOC: JD.ED 13:19
DX: C91.90 Lymphoid leukemia, unspecified not having achieved remission (principal); R60.0 Localized edema; I11.0 Hypertensive heart disease with heart failure; I50.9 Heart failure, unspecified; Z79.899 Other long term (current) drug therapy; Z79.82 Long term (current) use of aspirin; Z88.8 Allergy status to other drugs, medicaments and biological substances
CPT/HCPCS: 36415; 74177; 80053; 83880; 84484; 85025; 85379; 85610; 85730; 93971; 99284; A9270; G0103; Q9967

== ENCOUNTER 2019-06-17 18:39 | Inpatient (IN) | payer MEDICARE, OTHER ==
[2019-06-17] MEDS ORDERED: Sodium Chloride 0.9% 1,000 ML IV SCH (20:00)
--- NOTE | 2019-06-17 20:07 | EDM.PDOC ---
ED HPI GENERAL MEDICAL PROBLEM - General Chief Complaint: Chest Pain Stated Complaint: CHEST PAIN RIBS Time Seen by Provider: 06/17/19 18:53 Source of Information: Reports: Patient, Family () History Limitations: Reports: No Limitations - History of Present Illness INITIAL COMMENTS - FREE TEXT/NARRATIVE: Mr. Coulter is a very pleasant 79-year-old gentleman with a past medical history significant for peptic ulcer disease many years ago, and CLL, which is being observed without treatment thus far, who states that he developed a gassy/ bloated sensation felt in the epigastrium around 15:30 this afternoon. He subsequently developed a stabbing sensation in his epigastrium and a burning sensation in his right back, inferior to his right scapula. He took some Rolaids and a liquid antacid around 16:45, which she states helped for a while, but then it got worse than before. He states that he feels better if he is supine, worse if he is upright. He states that initially he felt worse if he took a deep breath, but now that seems to make it feel better. He states that he started to feel chilled once he was in the ED, however, he has not had a fever. No recent nausea, vomiting, constipation, diarrhea, or urinary symptoms. He had a left knee ache about 2 weeks ago, was seen in this ED, and diagnosed with a Mcgregor cyst. Otherwise, he denies recent cough or dyspnea, chest pain or palpitations, recent weight gain or weight loss, recent bloody bowel movements or black bowel movements, recent joint aches, headaches, or rashes. No prior similar symptoms. The patient's last food was around 12:45. His last liquid intake was around 16: 45. The patient's PCP is Dr. Aroldo Tinajero. His Boiler Plant Operator is Dr. Sami Cannon. His Oncologist is Dr. Janey Mendez. Chest Pain Score (Numeric/FACES): 9 - Related Data Allergies Allergy/AdvReac Type Severity Reaction Status Date / Time atorvastatin [From Lipitor] AdvReac Muscle Verified 06/17/19 18:50 Aches Home Meds: Home Meds Aspirin [Ecotrin EC] 81 mg PO DAILY 01/02/18 [History] Calcium Carbonate [Calcium] 1,250 mg PO DAILY 01/02/18 [History] Carvedilol [Coreg] 3.125 mg PO BID 01/02/18 [History] Dutasteride [Avodart] 0.5 mg PO DAILY 01/02/18 [History] Flaxseed 1 dose PO DAILY 01/02/18 [History] Lactobacillus Acidophilus [Acidophilus Lactobacillus] 1 tab PO DAILY 01/02/18 [ History] Lutein 20 mg PO DAILY 01/02/18 [History] Omeprazole 20 mg PO DAILY 01/02/18 [History] Psyllium [Metamucil] 1 dose PO BEDTIME 01/02/18 [History] Rosuvastatin [Crestor] 5 mg PO MOWEFR 01/02/18 [History] Tamsulosin [Flomax] 0.4 mg PO BID 01/02/18 [History] Ubidecarenone [Coq-10] 100 mg PO DAILY 07/11/18 [History] Meclizine [Antivert] 25 mg PO BID 30 Days #60 tab.chew 11/03/18 [Rx] Ondansetron [Zofran ODT] 4 mg PO Q6H PRN 6 Days #20 tab.dis 11/03/18 [Rx] Past Medical History HEENT History: Reports: Hard of Hearing, Impaired Vision Other HEENT History: wears glasses Cardiovascular History: Reports: Heart Failure, High Cholesterol Gastrointestinal History: Reports: Colon Polyp, Diverticulosis, PUD Genitourinary History: Reports: BPH Oncologic (Cancer) History: Reports: Leukemia (CLL - observation only) - Infectious Disease History Infectious Disease History: Reports: Chicken Pox, Measles - Past Surgical History HEENT Surgical History: Reports: Cataract Surgery (bilateral) GI Surgical History: Reports: Appendectomy (December 2017), Colonoscopy (x 2), Hernia, Abdominal (paraumbilical + ventral), Hernia, Inguinal (left) Musculoskeletal Surgical History: Reports: Shoulder Surgery (left arthroscopic, right open) Social & Family History - Family History Family Medical History: Noncontributory GI: Reports: Pancreatitis - Tobacco Use Smoking Status *Q: Former Smoker Years of Tobacco use: 12 Packs/Tins Daily: 1 Month/Year Tobacco Last Used: Quit Sep 1965 - Caffeine Use Caffeine Use: Reports: None - Alcohol Use Alcohol Use History: Yes Alcohol Use Frequency: Rarely - Recreational Drug Use Recreational Drug Use: Yes - Living Situation & Occupation Living situation: Reports: , with Spouse Occupation: Retired ED ROS GENERAL - Review of Systems Review Of Systems: Comprehensive ROS is negative, except as noted in HPI. ED EXAM, GI/ABD - Physical Exam Exam: See Below Exam Limited By: No Limitations General Appearance: Alert, WD/WN, No Apparent Distress Eyes: Bilateral: Normal Appearance, EOMI Ears: Normal External Exam, Hearing Grossly Normal Nose: Normal Inspection Throat/Mouth: Normal Inspection, Normal Lips, Normal Voice, No Airway Compromise Head: Atraumatic, Normocephalic Neck: Normal Inspection, Full Range of Motion Respiratory/Chest: No Respiratory Distress, Lungs Clear, Normal Breath Sounds, No Accessory Muscle Use Cardiovascular: Normal Peripheral Pulses, Regular Rate, Rhythm, No Edema, No Gallop, No JVD, No Murmur, No Rub GI/Abdominal Exam: Normal Bowel Sounds, Soft, No Organomegaly, No Distention, No Abnormal Bruit, No Mass, Tender (Reproducible, to the right upper quadrant, only. Jauregui's sign present. Nontender elsewhere.) (Male) Exam: Deferred Rectal (Males) Exam: Deferred Back Exam: Normal Inspection, Full Range of Motion. No: CVA Tenderness (L), CVA Tenderness (R) Extremities: Normal Inspection, Normal Range of Motion, No Pedal Edema, Normal Capillary Refill Neurological: Alert, Oriented, Normal Cognition, No Motor/Sensory Deficits Psychiatric: Normal Affect Skin Exam: Warm, Dry, Intact, Normal Color, No Rash Course - Vital Signs Last Recorded V/S: Last Vital Signs Temp 36.6 C 06/17/19 18:47 Pulse 63 06/17/19 18:47 Resp 15 06/17/19 18:47 BP 145/76 H 06/17/19 18:47 Pulse Ox 96 06/17/19 18:47 - Orders/Labs/Meds Orders: Active Orders 24 hr Category Date Time Status Abdomen 1V Flat [CR] Stat Exams 06/17/19 19:11 Taken Abdomen Ltd [US] Stat Exams 06/17/19 20:01 Taken Abdomen Pelvis w Cont [CT] Stat Exams 06/17/19 19:58 Taken Sodium Chloride 0.9% [Normal Saline] 1,000 ml Med 06/17/19 20:00 Active IV ASDIRECTED Medication Orders Sodium Chloride (Normal Saline) 1,000 mls @ 150 mls/hr IV ASDIRECTED OLGA LIDIA Last Admin: 06/17/19 20:16 Dose: 150 mls/hr Labs: Laboratory Tests 06/17/19 06/17/19 Range/Units 20:15 20:15 WBC 20.73 H (4.23-9.07) K/mm3 RBC 4.64 (4.63-6.08) M/mm3 Hgb 14.3 D (13.7-17.5) gm/dl Hct 43.8 (40.1-51.0) % MCV 94.4 H (79.0-92.2) fl MCH 30.8 (25.7-32.2) pg MCHC 32.6 (32.2-35.5) g/dl RDW Std Deviation 45.6 H (35.1-43.9) fL Plt Count 180 (163-337) K/mm3 MPV 11.2 (9.4-12.3) fl Neutrophils % (Manual) 53 (40-60) % Band Neutrophils % 0 (0-10) % Lymphocytes % (Manual) 43 H (20-40) % Atypical Lymphs % 0 % Monocytes % (Manual) 4 (2-10) % Eosinophils % (Manual) 0 L (0.8-7.0) % Basophils % (Manual) 0 L (0.2-1.2) Platelet Estimate Adequate RBC Morph Comment Not Reportable Sodium 141 (136-145) mEq/L Potassium 4.5 (3.5-5.1) mEq/L Chloride 106 (98-107) mEq/L Carbon Dioxide 28 (21-32) mEq/L Anion Gap 11.5 (5-15) BUN 21 H (7-18) mg/dL Creatinine 1.0 (0.7-1.3) mg/dL Est Cr Clr Drug Dosing 65.74 mL/min Estimated GFR (MDRD) > 60 (>60) mL/min BUN/Creatinine Ratio 21.0 H (14-18) Glucose 104 (83-115) mg/dL Calcium 8.8 (8.5-10.1) mg/dL Total Bilirubin 1.2 H (0.2-1.0) mg/dL AST 133 H (15-37) U/L ALT 95 H (16-63) U/L Alkaline Phosphatase 107 (46-116) U/L Total Protein 7.2 (6.4-8.2) g/dl Albumin 3.8 (3.4-5.0) g/dl Globulin 3.4 gm/dL Albumin/Globulin Ratio 1.1 (1-2) Lipase 132 (73-393) U/L Meds: Medications Generic Name Dose Route Start Last Admin Trade Name Yesenia PRN Reason Stop Dose Admin Sodium Chloride 1,000 mls @ 150 mls/hr 06/17/19 20:00 06/17/19 20:16 Normal Saline IV 150 mls/hr ASDIRECTED OLGA LIDIA Administration Discontinued Medications Generic Name Dose Route Start Last Admin Trade Name Yesenia PRN Reason Stop Dose Admin Hydromorphone HCl 0.5 mg 06/17/19 20:26 06/17/19 20:32 Dilaudid IVPUSH 06/17/19 20:27 0.5 mg ONETIME ONE Administration Iopamidol 100 ml 06/17/19 22:16 06/17/19 22:57 Isovue-300 (61%) IVPUSH 06/17/19 22:17 100 ml ONETIME ONE Administration Ondansetron HCl 4 mg 06/17/19 20:26 06/17/19 20:30 Zofran IVPUSH 06/17/19 20:27 4 mg ONETIME ONE Administration - Re-Assessments/Exams Free Text/Narrative Re-Assessment/Exam: 06/17/19 20:04 The patient's history and physical examination are most consistent with biliary colic. We contacted the automobile technician, and they are willing to perform an ultrasound of the right upper quadrant tonight. When that is finished, the patient will begin drinking oral contrast for a CT scan. In the meantime, blood work has been ordered. The patient will be given IV fluid, but declined an offer for both pain medication and antinausea medication. 06/17/19 20:26 Notified by Sherry LEARY that the patient changed his mind and would like something for pain. I have ordered some IV Dilaudid and IV Zofran. 06/17/19 22:27 Ultrasound of the right upper quadrant is read by Katerin as: 1. Gallbladder polyp 3 x 4 mm. 2. Cholelithiasis and possible cholecystitis. 3. Possible small nonobstructing stones right kidney. No hydronephrosis. 4. Probably small pseudocyst or 2 of normal size spleen. Further workup may be indicated. 06/17/19 23:18 CT of the abdomen and pelvis with oral and IV contrast is read by [facility] as "No acute findings. Nonacute findings discussed above." The patient's CBC is remarkable for a WBC count elevated at 20.73, but with 0% bandemia and only 53% neutrophilia. The remainder of his CBC is unremarkable. His CMP is remarkable for a BUN slightly elevated at 21, with a normal Cr. His total bilirubin is mildly elevated at 1.2. His AST/ALT are mildly elevated at 133/95. The remainder of his CMP is unremarkable. His lipase is within normal limits at 132. 06/17/19 23:23 Test results discussed with the patient and his . As above, it appears that the patient's pain is due to acute cholecystitis. There may be enough evidence to justify a cholecystectomy. The patient is willing to be admitted for a cholecystectomy, stating that he does not want to go through that pain again. 06/17/19 23:[address] Barrios at 23:25. He will come to the ED to evaluate the patient, in anticipation of placing him into observation. 06/18/19 00:16 Dr. Barrios has evaluated the patient, and will place him into observation. Departure - Departure Time of Disposition: 00:17 Disposition: Refer to Observation Condition: Good Clinical Impression: Acute cholecystitis - Discharge Information *PRESCRIPTION DRUG MONITORING PROGRAM REVIEWED*: Not Applicable *COPY OF PRESCRIPTION DRUG MONITORING REPORT IN PATIENT IRVING: Not Applicable Referrals: Sami Cannon MD [Ordering Only Provider] - Aroldo Tinajero MD [Primary Care Provider] - - My Orders Last 24 Hours: My Active Orders 06/17/19 19:58 Abdomen Pelvis w Cont [CT] Stat 06/17/19 20:00 Sodium Chloride 0.9% [Normal Saline] 1,000 ml IV ASDIRECTED 06/17/19 20:01 Abdomen Ltd [US] Stat - Assessment/Plan Last 24 Hours: My Active Orders 06/17/19 19:58 Abdomen Pelvis w Cont [CT] Stat 06/17/19 20:00 Sodium Chloride 0.9% [Normal Saline] 1,000 ml IV ASDIRECTED 06/17/19 20:01 Abdomen Ltd [US] Stat
[2019-06-17] MEDS ORDERED: HYDROmorphone 0.5 MG/0.5 ML Syringe IVPUSH ONE (20:26)
[2019-06-17] MEDS ORDERED: Ondansetron 4 MG/2 ML SDV IVPUSH ONE (20:26)
[2019-06-17] MEDS ORDERED: Iopamidol 612 MG/ML 100 ML Bottle IVPUSH ONE (22:16)
[2019-06-18] MEDS ORDERED: Morphine 2 MG/ML Syringe IVPUSH PRN (00:16)
[2019-06-18] MEDS ORDERED: oxyCODONE 5 MG Tab PO PRN ×2 (00:16→13:54)
--- NOTE | 2019-06-18 00:26 | PCM.HP.2 ---
H&P History of Present Illness - General Date of Service: 06/18/19 Admit Problem/Dx: Admission Diagnosis/Problem Admission Diagnosis/Problem Cholelithiasis symptomatic cholelithiasis Source of Information: Patient, Family History Limitations: Reports: No Limitations - History of Present Illness Onset of Symptoms: Reports: Today Duration of Symptoms: Reports: Hour(s): Location: Reports: Abdomen Quality: Reports: Ache, Dull, Pressure Severity: Severe Associated Symptoms: Reports: Nausea/Vomiting Other HPI/Comments: 79 yo M with CLL (monitored only) presents with epigastric bloating and pain that began this afternoon. He reports only one similar episode years ago that spontaneously resolved. The pain is in the epigastrium, radiates to the back, and he has more right sided abdominal pain than left. He reports some nausea but no vomiting. The pain has been present for hours since onset. Onset was fairly rapid without obvious inciting event. Chest Pain Score (Numeric/FACES): 9 - Related Data Allergies/Adverse Reactions: Allergies Allergy/AdvReac Type Severity Reaction Status Date / Time atorvastatin [From Lipitor] AdvReac Muscle Verified 06/17/19 18:50 Aches Home Medications: Home Meds Aspirin [Ecotrin EC] 81 mg PO DAILY 01/02/18 [History] Calcium Carbonate [Calcium] 1,250 mg PO DAILY 01/02/18 [History] Carvedilol [Coreg] 3.125 mg PO BID 01/02/18 [History] Dutasteride [Avodart] 0.5 mg PO DAILY 01/02/18 [History] Flaxseed 1 dose PO DAILY 01/02/18 [History] Lactobacillus Acidophilus [Acidophilus Lactobacillus] 1 tab PO DAILY 01/02/18 [ History] Lutein 20 mg PO DAILY 01/02/18 [History] Omeprazole 20 mg PO DAILY 01/02/18 [History] Psyllium [Metamucil] 1 dose PO BEDTIME 01/02/18 [History] Rosuvastatin [Crestor] 5 mg PO MOWEFR 01/02/18 [History] Tamsulosin [Flomax] 0.4 mg PO BID 01/02/18 [History] Ubidecarenone [Coq-10] 100 mg PO DAILY 07/11/18 [History] Meclizine [Antivert] 25 mg PO BID 30 Days #60 tab.chew 11/03/18 [Rx] Ondansetron [Zofran ODT] 4 mg PO Q6H PRN 6 Days #20 tab.dis 11/03/18 [Rx] Past Medical History HEENT History: Reports: Hard of Hearing, Impaired Vision Other HEENT History: wears glasses Cardiovascular History: Reports: Heart Failure, High Cholesterol Respiratory History: Reports: None Gastrointestinal History: Reports: Colon Polyp, Diverticulosis, PUD Genitourinary History: Reports: BPH BURNER HAND History: Reports: None Neurological History: Reports: None Psychiatric History: Reports: None Endocrine/Metabolic History: Reports: None Hematologic History: Reports: Other (See Below) Other Hematologic History: cll Immunologic History: Reports: None Oncologic (Cancer) History: Reports: Leukemia (CLL - observation only) Other Oncologic History: CLL Dermatologic History: Reports: Other (See Below) Other Dermatologic History: SKIN CANCER 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 - Infectious Disease History Infectious Disease History: Reports: Chicken Pox, Measles - Past Surgical History HEENT Surgical History: Reports: Cataract Surgery (bilateral) GI Surgical History: Reports: Appendectomy (December 2017), Colonoscopy (x 2), Hernia, Abdominal (paraumbilical + ventral), Hernia, Inguinal (left) Musculoskeletal Surgical History: Reports: Shoulder Surgery (left arthroscopic, right open) Social & Family History - Family History Family Medical History: Noncontributory GI: Reports: Pancreatitis - Tobacco Use Smoking Status *Q: Former Smoker Years of Tobacco use: 12 Packs/Tins Daily: 1 Used Tobacco, but Quit: Yes Month/Year Tobacco Last Used: Quit Sep 1965 - Caffeine Use Caffeine Use: Reports: None - Recreational Drug Use Recreational Drug Use: Yes - Living Situation & Occupation Living situation: Reports: , with Spouse Occupation: Retired H&P Review of Systems - Review of Systems: Review Of Systems: See Below General: Reports: No Symptoms HEENT: Reports: No Symptoms Pulmonary: Reports: No Symptoms Cardiovascular: Reports: No Symptoms Gastrointestinal: Reports: Abdominal Pain, Nausea Genitourinary: Reports: No Symptoms Musculoskeletal: Reports: No Symptoms Skin: Reports: No Symptoms Psychiatric: Reports: No Symptoms Neurological: Reports: No Symptoms Hematologic/Lymphatic: Reports: Other Immunologic: Reports: Other (chronic lymphocytic leukemia) Exam - Exam Exam: See Below - Vital Signs Vital Signs: Last Vital Signs Temp 36.6 C 06/17/19 18:47 Pulse 63 11/24/19 18:47 Resp 15 06/17/19 18:47 BP 145/76 H 06/17/19 18:47 Pulse Ox 96 06/17/19 18:47 Weight: 85.275 kg - Exam General: Alert, Oriented HEENT: Conjunctiva Clear Neck: Supple Lungs: Clear to Auscultation, Normal Respiratory Effort Cardiovascular: Regular Rate, Regular Rhythm GI/Abdominal Exam: Soft, Non-Tender (evidence of prior ventral hernia repair) (Male) Exam: No Hernia Rectal (Males) Exam: Deferred Extremities: Normal Inspection Skin: Warm, Dry Neuro Extensive - Mental Status: Alert, Oriented x3, Normal Mood/Affect, Normal Cognition Neuro Extensive - Motor, Sensory, Reflexes: Normal Gait Psychiatric: Alert, Normal Affect, Normal Mood - Patient Data Lab Results Last 24 hrs: Laboratory Results - last 24 hr 06/17/19 06/17/19 Range/Units 20:15 20:15 WBC 20.73 H (4.23-9.07) K/mm3 RBC 4.64 (4.63-6.08) M/mm3 Hgb 14.3 D (13.7-17.5) gm/dl Hct 43.8 (40.1-51.0) % MCV 94.4 H (79.0-92.2) fl MCH 30.8 (25.7-32.2) pg MCHC 32.6 (32.2-35.5) g/dl RDW Std Deviation 45.6 H (35.1-43.9) fL Plt Count 180 (163-337) K/mm3 MPV 11.2 (9.4-12.3) fl Neutrophils % (Manual) 53 (40-60) % Band Neutrophils % 0 (0-10) % Lymphocytes % (Manual) 43 H (20-40) % Atypical Lymphs % 0 % Monocytes % (Manual) 4 (2-10) % Eosinophils % (Manual) 0 L (0.8-7.0) % Basophils % (Manual) 0 L (0.2-1.2) Platelet Estimate Adequate RBC Morph Comment Not Reportable Sodium 141 (136-145) mEq/L Potassium 4.5 (3.5-5.1) mEq/L Chloride 106 (98-107) mEq/L Carbon Dioxide 28 (21-32) mEq/L Anion Gap 11.5 (5-15) BUN 21 H (7-18) mg/dL Creatinine 1.0 (0.7-1.3) mg/dL Est Cr Clr Drug Dosing 65.74 mL/min Estimated GFR (MDRD) > 60 (>60) mL/min BUN/Creatinine Ratio 21.0 H (14-18) Glucose 104 (83-115) mg/dL Calcium 8.8 (8.5-10.1) mg/dL Total Bilirubin 1.2 H (0.2-1.0) mg/dL AST 133 H (15-37) U/L ALT 95 H (16-63) U/L Alkaline Phosphatase 107 (46-116) U/L Total Protein 7.2 (6.4-8.2) g/dl Albumin 3.8 (3.4-5.0) g/dl Globulin 3.4 gm/dL Albumin/Globulin Ratio 1.1 (1-2) Lipase 132 (73-393) U/L Result Diagrams: 06/17/19 20:15 06/17/19 20:15 *Q Meaningful Use (ADM) - VTE Risk Assess *Q Each Risk Factor Represents 3 Points: Age 75 Years or Greater Total Score 3 Point Risk Factors: 3 Problem List Initiated/Reviewed/Updated: Yes Orders Last 24hrs: Active Orders 24 hr Category Date Time Status Patient Status [ADT] Routine ADT 06/18/19 00:16 Ordered Activity as Tolerated [RC] .Routine Care 06/18/19 00:16 Ordered Antiembolic Devices [RC] PER UNIT ROUTINE Care 06/18/19 00:17 Ordered Oxygen Therapy [RC] PRN Care 06/18/19 00:16 Ordered Vital Signs [RC] Q8H Care 06/18/19 00:16 Ordered Nothing Per Oral Diet [DIET] Diet 06/18/19 Breakfast Ordered Abdomen 1V Flat [CR] Stat Exams 06/17/19 19:11 Taken Abdomen Ltd [US] Stat Exams 06/17/19 20:01 Taken Abdomen Pelvis w Cont [CT] Stat Exams 06/17/19 19:58 Taken BASIC METABOLIC PANEL,BMP [CHEM] AM Lab 06/18/19 05:11 Ordered BILIRUBIN DIRECT [CHEM] Stat Lab 06/18/19 00:20 Ordered BILIRUBIN TOTAL [CHEM] Timed Lab 06/18/19 06:00 Ordered CBC WITH AUTO DIFF [HEME] AM Lab 06/18/19 05:11 Ordered Acetaminophen [Tylenol] Med 06/18/19 00:30 Ordered 975 mg PO Q8H Heparin Sodium Med 06/18/19 00:30 Ordered 5,000 units SUBCUT Q8H Lactated Ringers [Ringers, Lactated] 1,000 ml Med 06/18/19 00:30 Ordered IV ASDIRECTED Morphine Med 06/18/19 00:16 Ordered 1 mg IVPUSH Q4H PRN Sodium Chloride 0.9% [Normal Saline] 1,000 ml Med 06/17/19 20:00 Active IV ASDIRECTED oxyCODONE Med 06/18/19 00:16 Ordered 5 mg PO Q4H PRN Sequential Compression Device [OM.PC] Routine Oth 06/18/19 00:16 Ordered Resuscitation Status Routine Resus Stat 06/18/19 00:16 Ordered Medication Orders Acetaminophen (Tylenol) 975 mg PO Q8H OLGA LIDIA Heparin Sodium (Porcine) (Heparin Sodium) 5,000 units SUBCUT Q8H OLGA LIDIA Sodium Chloride (Normal Saline) 1,000 mls @ 150 mls/hr IV ASDIRECTED OLGA LIDIA Last Admin: 06/17/19 20:16 Dose: 150 mls/hr Lactated Ringer's (Ringers, Lactated) 1,000 mls @ 50 mls/hr IV ASDIRECTED OLGA LIDIA Morphine Sulfate (Morphine) 1 mg IVPUSH Q4H PRN PRN Reason: Pain (severe 7-10) Oxycodone HCl (Oxycodone) 5 mg PO Q4H PRN PRN Reason: Pain (moderate 4-6) Assessment/Plan Comment:: Likely symptomatic cholelithiasis, with elevation in total bilirubin compared to lab work a few weeks ago. His pain has abated; he received dilaudid about 5 hours ago. I imagine he may have passed a stone from the common duct, but we will recheck labs including bilirubin in the morning. If bilirubin rises, I discussed transfer to a facility with GI and ERCP capabilities. If bilirubin normalizes, we will plan for laparoscopic cholecystectomy here. Patient does have CLL and mild congestive heart failure; he received a general anesthetic within the past year for abdominal surgery and had no complications. - Mortality Measure Prognosis:: Good
[2019-06-18] MEDS: Lactated Ringers 1,000 ML IV SCH (01:38)
[2019-06-18] MEDS: Heparin Sodium 5,000 Units/ML Vial SUBCUT SCH ×4 (01:48→23:54)
[2019-06-18] MEDS: Acetaminophen 325 MG Tab PO SCH ×5 (01:50→23:54)
--- NOTE | 2019-06-18 08:31 | CT ---
CT abdomen and pelvis Technique: Multiple axial sections were obtained from above the dome of the diaphragm inferiorly through the pubic symphysis. Delayed images were also obtained through the bladder and pelvis. Comparison: Previous abdominal ultrasound performed earlier on same day (8:31 PM) and previous CT abdomen and pelvis exam of 06/03/19. Findings: Visualized lung bases shows mild fibrosis and scarring. Nothing acute is appreciated. Liver contains multiple cysts. These are stable from prior exam. Spleen shows 2 low density lesions which are similar to most recent exam. Cortical cysts are noted within both kidneys which remain stable. Adrenal glands show no nodule. Pancreas is within normal limits. Gallbladder shows slight increased density suspicious for very slight gallstones. Pancreas is within normal limits. Aorta shows no aneurysm. No retroperitoneal adenopathy or mesenteric abnormalities are seen. No pelvic mass or adenopathy is seen. Delayed images show contrast with thin the ureters. Parapelvic cysts are seen within the left kidney. Contrast is noted within the bladder. Right inguinal hernia is seen containing a loop of bowel. No bowel dilatation is seen. Delayed images show splenic lesions to become isodense to the spleen No pelvic mass or adenopathy is seen. Appendix not visualized with certainty. No free fluid or inflammatory change is seen. Nonenhancing nodule is again seen within the prostate gland. Bone window settings were reviewed which show scattered degenerative change within the spine. Joint space narrowing is also noted within both hips. No acute osseous finding is seen. Impression: 1. Increased density within the gallbladder suspicious for minimal gallstones. Please see ultrasound report for additional findings not seen on CT study. 2. Two abnormalities within the spleen. These become isodense to the spleen on delayed images making the possibility of hemangiomas more likely than metastatic lesions. 3. Nonenhancing nodule is again seen within the prostate gland, this is nonspecific for benign nodule or prostate cancer. PSA could be considered to further evaluate. 4. Other findings as noted above which are nonacute. Diagnostic code #3 I agree with preliminary report from [facility], finalized on 06/18/19, 12:16 AM Central Time
--- NOTE | 2019-06-18 08:31 | US ---
Limited abdominal ultrasound: Multiple real-time images of the upper right abdomen were obtained. Comparison: Prior CT abdomen and pelvis exam of 06/13/19. Liver shows evidence of cysts. Crescentic hypoechoic areas are seen adjacent to the gallbladder wall suspicious for small amount of pericholecystic fluid. Possible minimal gallstones. Gallbladder wall shows some areas of thickening. There appears to be sludge within the gallbladder. Equivocal polyp within the gallbladder or possibly adherent sludge measuring 4 mm. Small hyperechoic area is seen within the abdomen which or overlies the CBD. Difficult to exclude a small CBD stone. Right kidney shows a cyst measuring 1.2 cm. Possible calcification within the mid right kidney compatible with nonobstructing stone measuring about 3 mm. 2 splenic abnormalities are seen. Inferior vena cava is patent. Portal vein shows normal hepatopedal flow. Visualized portions of the pancreas are within normal limits. Impression: 1. Small amount of sludge within the gallbladder. Adherent sludge versus gallbladder polyp measuring 4 mm also noted. Minimal gallstones are seen. Mild amount of pericholecystic fluid is seen with areas of gallbladder wall thickening. Early acute cholecystitis is difficult to exclude. 2. Equivocal calcification within the CBD and distal CBD stone is not excluded. No biliary duct dilatation is seen. 3. Calcification compatible with nonobstructing stone within the right kidney. Cyst within the right kidney is noted. 4. 2 splenic abnormalities are seen. Please see subsequent CT exam for further discussion. Diagnostic code #3 I agree with preliminary report from [facility], finalized on 06/17/19, 11:06 PM Central Time
--- NOTE | 2019-06-18 08:31 | CR ---
Abdomen: Supine view of the abdomen was obtained. Comparison: No prior abdominal x-ray, previous CT abdomen and pelvis exam of 06/03/19. Findings: Scattered degenerative change is noted within the spine. Bowel gas pattern is normal. No discrete soft tissue abnormality is seen. Surgical material is seen overlying the left pelvis. Impression: 1. Incidental findings. 2. Nothing acute is seen on supine abdominal x-ray. Diagnostic code #2
[2019-06-18] MEDS ORDERED: Carvedilol 3.125 MG Tab PO SCH (09:30)
[2019-06-18] MEDS ORDERED: CARVEDILOL 3.125 MG PO SCH (09:45)
--- NOTE | 2019-06-18 10:13 | PCM.PREANE ---
Preanesthetic Assessment - Procedure Proposed Procedure: Laparoscopic Cholecystectomy - Anesthesia/Transfusion/Family Hx Anesthesia History: Prior Anesthesia Without Reaction Family History of Anesthesia Reaction: No Transfusion History: Prior Transfusion Without Reaction Intubation History: Unknown (no issues in past ) - Review of Systems General: No Symptoms Pulmonary: No Symptoms (History of Smoking, quit September 1965) Cardiovascular: No Symptoms (HTN ( patient denies), Elevated cholesterol, History of mild CHF), Palpitations (History of palpitations, PVC's in 2014 with Coreg started and symptoms resolved.) Gastrointestinal: No Symptoms (History of GERD) Neurological: No Symptoms (History of Leukemia (CLL)/History of BPH, History of vertigo in October), Headache (History of migraines) Other: Reports: Liver Problems (Elevated liver enzymes noted), Sinus Problem ( History of sinus congestion) - Physical Assessment NPO Status Date: 06/18/19 NPO Status Time: 00:30 Vital Signs: Last Vital Signs Temp 36.3 C 06/18/19 07:57 Pulse 60 06/18/19 09:45 Resp 16 06/18/19 07:57 BP 122/64 06/18/19 09:45 Pulse Ox 94 L 06/18/19 07:57 Height: 1.83 m Weight: 88.405 kg ASA Class: 3 Mental Status: Alert & Oriented x3 Airway Class: Mallampati = 2 Dentition: Reports: Normal Dentition, [place](s), Caries Thyro-Mental Finger Breadths: 3 Mouth Opening Finger Breadths: 3 ROM/Head Extension: Full Lungs: Clear to Auscultation, Normal Respiratory Effort Cardiovascular: Regular Rate, Regular Rhythm, No Murmurs - Lab Values: Laboratory Last Values WBC 16.71 K/mm3 (4.23-9.07) H 06/18/19 06:02 RBC 3.95 M/mm3 (4.63-6.08) L 06/18/19 06:02 Hgb 12.2 gm/dl (13.7-17.5) L D 06/18/19 06:02 Hct 37.4 % (40.1-51.0) L 06/18/19 06:02 MCV 94.7 fl (79.0-92.2) H 06/18/19 06:02 MCH 30.9 pg (25.7-32.2) 06/18/19 06:02 MCHC 32.6 g/dl (32.2-35.5) 06/18/19 06:02 RDW Std Deviation 45.1 fL (35.1-43.9) H 06/18/19 06:02 Plt Count 159 K/mm3 (163-337) L 06/18/19 06:02 MPV 11.3 fl (9.4-12.3) 06/18/19 06:02 Neut % (Auto) 24.8 % (34.0-67.9) L 06/18/19 06:02 Lymph % (Auto) 69.1 % (21.8-53.1) H 06/18/19 06:02 Crook % (Auto) 5.3 % (5.3-12.2) 06/18/19 06:02 Eos % (Auto) 0.5 (0.8-7.0) L 06/18/19 06:02 Baso % (Auto) 0.1 % (0.1-1.2) 06/18/19 06:02 Neut # (Auto) 4.14 K/mm3 (1.78-5.38) 06/18/19 06:02 Lymph # (Auto) 11.54 K/mm3 (1.32-3.57) H 06/18/19 06:02 Crook # (Auto) 0.89 K/mm3 (0.30-0.82) H 06/18/19 06:02 Eos # (Auto) 0.09 K/mm3 (0.04-0.54) 06/18/19 06:02 Baso # (Auto) 0.02 K/mm3 (0.01-0.08) 06/18/19 06:02 Neutrophils % (Manual) 53 % (40-60) 06/17/19 20:15 Band Neutrophils % 0 % (0-10) 06/17/19 20:15 Lymphocytes % (Manual) 43 % (20-40) H 06/17/19 20:15 Atypical Lymphs % 0 % 06/17/19 20:15 Monocytes % (Manual) 4 % (2-10) 06/17/19 20:15 Eosinophils % (Manual) 0 % (0.8-7.0) L 06/17/19 20:15 Basophils % (Manual) 0 (0.2-1.2) L 06/17/19 20:15 Manual Slide Review Abnormal smear 06/18/19 06:02 Platelet Estimate Adequate 06/17/19 20:15 RBC Morph Comment Not Reportable 06/17/19 20:15 Sodium 142 mEq/L (136-145) 06/18/19 06:02 Potassium 4.1 mEq/L (3.5-5.1) 06/18/19 06:02 Chloride 108 mEq/L (98-107) H 06/18/19 06:02 Carbon Dioxide 25 mEq/L (21-32) 06/18/19 06:02 Anion Gap 13.1 (5-15) 06/18/19 06:02 BUN 15 mg/dL (7-18) 06/18/19 06:02 Creatinine 1.0 mg/dL (0.7-1.3) 06/18/19 06:02 Est Cr Clr Drug Dosing 65.74 mL/min 06/18/19 06:02 Estimated GFR (MDRD) > 60 mL/min (>60) 06/18/19 06:02 BUN/Creatinine Ratio 15.0 (14-18) 06/18/19 06:02 Glucose 106 mg/dL (83-115) 06/18/19 06:02 Calcium 8.2 mg/dL (8.5-10.1) L 06/18/19 06:02 Total Bilirubin 0.9 mg/dL (0.2-1.0) 06/18/19 06:02 Direct Bilirubin 0.40 mg/dl (0.0-0.2) H 06/18/19 00:30 AST 133 U/L (15-37) H 06/17/19 20:15 ALT 95 U/L (16-63) H 06/17/19 20:15 Alkaline Phosphatase 107 U/L (46-116) 06/17/19 20:15 Total Protein 7.2 g/dl (6.4-8.2) 06/17/19 20:15 Albumin 3.8 g/dl (3.4-5.0) 06/17/19 20:15 Globulin 3.4 gm/dL 06/17/19 20:15 Albumin/Globulin Ratio 1.1 (1-2) 06/17/19 20:15 Lipase 132 U/L (73-393) 06/17/19 20:15 Above labs reviewed and noted and within acceptable ranges to proceed with scheduled procedure. - Imaging/EKG Impressions: EKG:Sr rate 59, nonspecific Twave abnormalities 06/03/19: Right Middle lung atelectasis, and bases as well. ( Patient asymptomatic, and encouraged to deep breathe and cough after surgery) - Allergies Allergies/Adverse Reactions: Allergies Allergy/AdvReac Type Severity Reaction Status Date / Time atorvastatin [From Lipitor] AdvReac Muscle Verified 06/17/19 18:50 Aches - Anesthesia Plan Pre-Op Medication Ordered: Beta Yesica Beta Yesica: Carvedilol Med Last Dose Date: 06/18/19 Med Last Dose Time: 09:45 - Acknowledgements Anesthesia Type Planned: General Anesthesia Pt an Appropriate Candidate for the Planned Anesthesia: Yes Alternatives and Risks of Anesthesia Discussed w Pt/Guardian: Yes Pt/Guardian Understands and Agrees with Anesthesia Plan: Yes PreAnesthesia Questionnaire HEENT History: Reports: Hard of Hearing, Impaired Vision Other HEENT History: wears glasses and bilat hearing aides Cardiovascular History: Reports: Heart Failure, High Cholesterol Respiratory History: Reports: None Gastrointestinal History: Reports: Colon Polyp, Diverticulosis, PUD Genitourinary History: Reports: BPH [employer] History: Reports: None Neurological History: Reports: None Psychiatric History: Reports: None Endocrine/Metabolic History: Reports: None Hematologic History: Reports: Other (See Below) Other Hematologic History: CLL Immunologic History: Reports: None Oncologic (Cancer) History: Reports: Leukemia, Other (See Below) Other Oncologic History: CLL,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 ear with removal Dermatologic History: Reports: Other (See Below) Other Dermatologic History: SKIN CANCER REMOVED FROM LEFT EAR - Infectious Disease History Infectious Disease History: Reports: Chicken Pox, Measles - Past Surgical History Head Surgeries/Procedures: Reports: None HEENT Surgical History: Reports: Cataract Surgery, Other (See Below) Other HEENT Surgeries/Procedures: Bilat Cardiovascular Surgical History: Reports: None GI Surgical History: Reports: Appendectomy, Colonoscopy, Hernia, Abdominal, Hernia, Inguinal, Other (See Below) Other GI Surgeries/Procedures: Hernia repair, Periumbilical, Ventral and Inguinal Male Surgical History: Reports: None Musculoskeletal Surgical History: Reports: Shoulder Surgery Other Musculoskeletal Surgeries/Procedures:: Rotator cuff repair bilat Oncologic Surgical History: Reports: None Dermatological Surgical History: Reports: None - SUBSTANCE USE Smoking Status *Q: Former Smoker Tobacco Use Within Last Twelve Months: No Second Hand Smoke Exposure: No Recreational Drug Use History: No - HOME MEDS Home Medications: Home Meds Aspirin [Ecotrin EC] 81 mg PO DAILY 01/02/18 [History] Calcium Carbonate [Calcium] 1,250 mg PO DAILY 01/02/18 [History] Carvedilol [Coreg] 3.125 mg PO BID 01/02/18 [History] Dutasteride [Avodart] 0.5 mg PO DAILY 01/02/18 [History] Flaxseed 1 dose PO DAILY 01/02/18 [History] Lactobacillus Acidophilus [Acidophilus Lactobacillus] 1 tab PO DAILY 01/02/18 [ History] Lutein 20 mg PO DAILY 01/02/18 [History] Omeprazole 20 mg PO DAILY 01/02/18 [History] Psyllium [Metamucil] 1 dose PO BEDTIME 01/02/18 [History] Rosuvastatin [Crestor] 5 mg PO MOWEFR 01/02/18 [History] Tamsulosin [Flomax] 0.4 mg PO BID 01/02/18 [History] Ubidecarenone [Coq-10] 100 mg PO DAILY 07/11/18 [History] - CURRENT (IN HOUSE) MEDS Current Meds: Current Medications Acetaminophen (Tylenol) 975 mg PO Q8H [facility] Last Admin: 06/18/19 09:20 Dose: Not Given Carvedilol (Coreg) 3.125 mg PO BID [facility] Last Admin: 06/18/19 09:45 Dose: 3.125 mg Heparin Sodium (Porcine) (Heparin Sodium) 5,000 units SUBCUT Q8H [facility] Last Admin: 06/18/19 09:20 Dose: Not Given Lactated Ringer's (Ringers, Lactated) 1,000 mls @ 50 mls/hr IV ASDIRECTED [facility] Last Admin: 06/18/19 01:38 Dose: 50 mls/hr Morphine Sulfate (Morphine) 1 mg IVPUSH Q4H PRN PRN Reason: Pain (severe 7-10) Oxycodone HCl (Oxycodone) 5 mg PO Q4H PRN PRN Reason: Pain (moderate 4-6) Discontinued Medications Carvedilol (Coreg) 3.125 mg PO BID [facility] Hydromorphone HCl (Dilaudid) 0.5 mg IVPUSH ONETIME ONE Stop: 06/17/19 20:27 Last Admin: 06/17/19 20:32 Dose: 0.5 mg Sodium Chloride (Normal Saline) 1,000 mls @ 150 mls/hr IV ASDIRECTED [facility] Last Admin: 06/17/19 20:16 Dose: 150 mls/hr Iopamidol (Isovue-300 (61%)) 100 ml IVPUSH ONETIME ONE Stop: 06/17/19 22:17 Last Admin: 06/17/19 22:57 Dose: 100 ml Ondansetron HCl (Zofran) 4 mg IVPUSH ONETIME ONE Stop: 06/17/19 20:27 Last Admin: 06/17/19 20:30 Dose: 4 mg
[2019-06-18] MEDS ORDERED: Bupivacaine 0.5%/EPINEPHrine 1:200,000 50 ML MDV ONE (10:39)
[2019-06-18] MEDS ORDERED: Propofol 200 MG/20 ML SDV ONE (11:34)
[2019-06-18] MEDS ORDERED: Lidocaine 1% 4 ML ONE (11:34)
[2019-06-18] MEDS ORDERED: ceFAZolin 1 GM Vial ONE (11:34)
[2019-06-18] MEDS ORDERED: Rocuronium 50 MG/5 ML Vial ONE (11:34)
[2019-06-18] MEDS ORDERED: Lactated Ringers 1,000 ML ONE (11:34)
[2019-06-18] MEDS ORDERED: Ondansetron 4 MG/2 ML SDV ONE (11:34)
[2019-06-18] MEDS ORDERED: Ketorolac 15 MG/ML SDV ONE (11:35)
[2019-06-18] MEDS ORDERED: Midazolam 1 MG/ML 2 ML SDV ONE (11:35)
[2019-06-18] MEDS ORDERED: fentaNYL 250 MCG/5 ML SDV ONE (11:35)
[2019-06-18] MEDS ORDERED: Dexamethasone 4 MG/ML 5 ML MDV ONE (11:35)
[2019-06-18] MEDS ORDERED: Neostigmine Methylsulfate 1 MG/ML 5 ML Syringe ONE (12:58)
[2019-06-18] MEDS ORDERED: Ondansetron 4 MG/2 ML SDV IVPUSH PRN (13:01)
[2019-06-18] MEDS ORDERED: fentaNYL 100 MCG/2 ML SDV IVPUSH PRN (13:01)
[2019-06-18] MEDS ORDERED: HYDROmorphone 0.5 MG/0.5 ML Syringe IVPUSH PRN (13:01)
--- NOTE | 2019-06-18 13:36 | PCM.POSTAN ---
POST ANESTHESIA ASSESSMENT - MENTAL STATUS Mental Status: Alert, Oriented - VITAL SIGNS Vital Signs: Last Vital Signs Temp 36.6 C 06/18/19 13:30 Pulse 63 06/18/19 13:30 Resp 13 06/18/19 13:30 BP 119/61 06/18/19 13:30 Pulse Ox 97 06/18/19 13:30 - RESPIRATORY Respiratory Status: Respiratory Rate WNL, Airway Patent, O2 Saturation Stable, Supplemental Oxygen - CARDIOVASCULAR CV Status: Pulse Rate WNL, Blood Pressure Stable - GASTROINTESTINAL GI Status: No Symptoms - PAIN Pain Score: 0 - POST OP HYDRATION Hydration Status: Adequate & Stable
--- NOTE | 2019-06-18 14:01 | PCM.PRNOTE ---
- Free Text/Narrative Note: Operative Report Operation: laparoscopic cholecystectomy Date: 06/18/2019 Attending Surgeon: Clyde Barrios MD Indication for Surgery:symptomatic cholelithiasis Preoperative antibiotics: 2 g Ancef IV VTE prophylaxis: Heparin 5000 u SC, SCDs Estimated Blood Loss: 5 cc Findings: chronically inflamed gallbladder Detailed Report: The patient underwent general endotracheal anesthesia after being placed supine on the operating table and initial timeout. The abdomen was prepped and draped in sterile fashion. A pre-incision timeout was performed confirming the patient s identity and the operation to be performed. A Veress needle was inserted into the abdominal cavity below the left costal margin along the mid-clavicular line. The abdomen was insufflated with CO2 to 15 mm Hg. Gas was aspirated below the umbilicus with a syringe in order to ensure safe placement of a 5 mm bladed laparoscopic port. The 5mm 30 degree laparoscope was then inserted and viscera inspected. The gallbladder appeared chronically inflamed and edematous- the transverse colon was adherent to the gallbladder due to inflammation. Two additional 5 mm ports were placed along the right subcostal region under direct vision with the laparoscope, and a 12 mm port was placed at the subxiphoid region. The gallbladder was grasped at the fundus with a locking grasper and retracted anteriorly and superiorly, exposing the infundibulum. This was grasped with the surgeons left hand grasper and retracted laterally. The hook electrode was used to open the overlying peritoneum, and this plane of dissection was developed along the edges of the gallbladder at its interface with the liver bed. A combination of hook electrode, blunt dissection with the suction expander machine operator and the [place] grasper were used to carefully expose and skeletonize the cystic duct and artery. A critical view of safety was obtained. Hemolock clips were then placed on both structures; two each on the stay side and one each on the specimen side. The duct and artery were transected with laparoscopic scissors. The hook was then used to dissect the gallbladder free from its attachment to the liver. The specimen was then placed in an Endocatch bag and removed through the subxiphoid port. The liver bed was inspected and appeared hemostatic. The larger subxiphoid port was closed at the level of the fascia with vicryl suture using the PMI laparoscopic suture passer. The umbilical site was closed at the level of fascia with 0 prolene suture due to the presence of hernia mesh. Pneumoperitoneum was then released. All skin incisions were then closed with placement of subcuticular vicryl suture and dressed with dermabond. A total of 20 cc 1% lidocaine with epinephrine was used for local anesthesia at the incision sites. The patient tolerated the operation well, was extubated in the operating room and transferred to the PACU for routine post-anesthesia care. Clyde Barrios MD General Surgery
[2019-06-18] MEDS ORDERED: Finasteride 5 MG Tab PO ONE (18:00)
[2019-06-18] MEDS: Tamsulosin 0.4 MG Cap.ER PO SCH (19:59)
[2019-06-18] MEDS: Carvedilol 3.125 MG Tab PO SCH (19:59)
[2019-06-19] MEDS: Lactated Ringers 1,000 ML IV SCH (04:25)
--- NOTE | 2019-06-19 08:01 | PCM.DCSUM1 ---
Discharge Summary - Hospital Course Free Text/Narrative:: admitted with diagnosis of symptomatic cholelithiasis with possible choledocholithiasis based on elevation in bilirubin. This normalized when labs were rechecked a few hours later. Went to OR for routine laparoscopic cholecystectomy. Did well post-operatively. Diagnosis: Stroke: No - Discharge Data Discharge Date: 06/19/19 Discharge Disposition: Home, Self-Care 01 Condition: Good - Referral to Home Health Primary Care Physician: Aroldo Tinajero MD - Patient Instructions Diet: Heart Healthy Diet Activity: No Lifting Over 10 Pounds Driving: Do Not Drive Showering/Bathing: May Shower Wound/Incision Care: Keep Operative Site/Wound Site Clean and Dry Notify Provider of: Fever, Increased Pain, Swelling and Redness, Drainage - Discharge Plan *PRESCRIPTION DRUG MONITORING PROGRAM REVIEWED*: Not Applicable *COPY OF PRESCRIPTION DRUG MONITORING REPORT IN PATIENT IRVING: Not Applicable Prescriptions/Med Rec: oxyCODONE 5 mg PO Q4H PRN #15 tab PRN Reason: Pain Home Medications: Home Meds Aspirin [Ecotrin EC] 81 mg PO DAILY 01/02/18 [History] Calcium Carbonate [Calcium] 1,250 mg PO DAILY 01/02/18 [History] Carvedilol [Coreg] 3.125 mg PO BID 01/02/18 [History] Dutasteride [Avodart] 0.5 mg PO DAILY 01/02/18 [History] Flaxseed 1 dose PO DAILY 01/02/18 [History] Lactobacillus Acidophilus [Acidophilus Lactobacillus] 1 tab PO DAILY 01/02/18 [ History] Lutein 20 mg PO DAILY 01/02/18 [History] Omeprazole 20 mg PO DAILY 01/02/18 [History] Psyllium [Metamucil] 1 dose PO BEDTIME 01/02/18 [History] Rosuvastatin [Crestor] 5 mg PO MOWEFR 01/02/18 [History] Tamsulosin [Flomax] 0.4 mg PO BID 01/02/18 [History] Ubidecarenone [Coq-10] 100 mg PO DAILY 07/11/18 [History] oxyCODONE 5 mg PO Q4H PRN #15 tab 06/19/19 [Rx] Oxygen Therapy Mode: Room Air Patient Handouts: Laparoscopic Cholecystectomy, Care After Referrals: Sami Cannon MD [Ordering Only Provider] - Aroldo Tinajero MD [Primary Care Provider] - - Discharge Summary/Plan Comment DC Time >30 min.: Yes - Patient Data Vitals - Most Recent: Last Vital Signs Temp 36.4 C 06/19/19 04:29 Pulse 56 L 06/19/19 04:29 Resp 16 06/19/19 04:29 BP 101/49 L 06/19/19 04:29 Pulse Ox 90 L 06/19/19 04:29 Weight - Most Recent: 89.448 kg I&O - Last 24 hours: Intake & Output 06/18/19 06/19/19 06/19/19 22:59 06:59 14:59 Intake Total 1273 1450 Output Total 650 Balance 1273 800 Med Orders - Current: Current Medications Acetaminophen (Tylenol) 975 mg PO Q8H [facility] Last Admin: 06/18/19 23:54 Dose: 975 mg Aspirin (Halfprin) 81 mg PO DAILY [facility] Calcium Carbonate/Glycine (Calcium Carbonate) 1,200 mg PO DAILY [facility] Carvedilol (Coreg) 3.125 mg PO BID [facility] Last Admin: 06/18/19 19:59 Dose: 3.125 mg Finasteride (Proscar) 5 mg PO DAILY [facility] Heparin Sodium (Porcine) (Heparin Sodium) 5,000 units SUBCUT Q8H [facility] Last Admin: 06/18/19 23:54 Dose: 5,000 units Lactated Ringer's (Ringers, Lactated) 1,000 mls @ 50 mls/hr IV ASDIRECTED [facility] Last Admin: 06/19/19 04:25 Dose: 50 mls/hr Oxycodone HCl (Oxycodone) 5 mg PO Q4H PRN PRN Reason: Pain (moderate 4-6) Oxycodone HCl (Oxycodone) 5 mg PO Q4H PRN PRN Reason: Pain (moderate 4-6) Pantoprazole Sodium (Protonix) 40 mg PO DAILY [facility] Rosuvastatin Calcium (Crestor) 5 mg PO MOWEFR [facility] Tamsulosin HCl (Flomax) 0.4 mg PO BID [facility] Last Admin: 06/18/19 19:59 Dose: 0.4 mg Discontinued Medications Bupivacaine HCl/Epinephrine Bitart (Marcaine 0.5%/Epinephrine 1:200,000) Confirm Administered Dose 50 ml .ROUTE .STK-MED ONE Stop: 06/18/19 10:40 Last Admin: 06/18/19 12:31 Dose: 17 ml Carvedilol (Coreg) 3.125 mg PO BID [facility] Last Admin: 06/18/19 10:43 Dose: Not Given Carvedilol (Coreg) 3.125 mg PO BID [facility] Last Admin: 06/18/19 09:45 Dose: 3.125 mg Cefazolin Sodium (Ancef) Confirm Administered Dose 2 gm .ROUTE .STK-MED ONE Stop: 06/18/19 11:35 Dexamethasone (Dexamethasone) Confirm Administered Dose 20 mg .ROUTE .STK-MED ONE Stop: 06/18/19 11:36 Fentanyl (Sublimaze) Confirm Administered Dose 250 mcg .ROUTE .STK-MED ONE Stop: 06/18/19 11:36 Fentanyl (Sublimaze) 50 mcg IVPUSH Q5M PRN PRN Reason: Pain Stop: 06/18/19 16:00 Finasteride (Proscar) 5 mg PO BEDTIME ONE Stop: 06/18/19 18:01 Last Admin: 06/18/19 19:29 Dose: 5 mg Glycopyrrolate () Confirm Administered Dose 1 mg .ROUTE .STK-MED ONE Stop: 06/18/19 12:59 Hydromorphone HCl (Dilaudid) 0.5 mg IVPUSH ONETIME ONE Stop: 06/17/19 20:27 Last Admin: 06/17/19 20:32 Dose: 0.5 mg Hydromorphone HCl (Dilaudid) 0.5 mg IVPUSH Q10M PRN PRN Reason: Pain (severe 7-10) Stop: 06/18/19 16:00 Sodium Chloride (Normal Saline) 1,000 mls @ 150 mls/hr IV ASDIRECTED [facility] Last Admin: 06/17/19 20:16 Dose: 150 mls/hr Lidocaine HCl (Xylocaine-Mpf 1%) Confirm Administered Dose 4 mls @ as directed .ROUTE .STK-MED ONE Stop: 06/18/19 11:35 Lactated Ringer's (Ringers, Lactated) Confirm Administered Dose 1,000 mls @ as directed .ROUTE .STK-MED ONE Stop: 06/18/19 11:35 Iopamidol (Isovue-300 (61%)) 100 ml IVPUSH ONETIME ONE Stop: 06/17/19 22:17 Last Admin: 06/17/19 22:57 Dose: 100 ml Ketorolac Tromethamine (Toradol) Confirm Administered Dose 15 mg .ROUTE .STK- MED ONE Stop: 06/18/19 11:36 Midazolam HCl (Versed 1 Mg/Ml) Confirm Administered Dose 2 mg .ROUTE .STK-MED ONE Stop: 06/18/19 11:36 Morphine Sulfate (Morphine) 1 mg IVPUSH Q4H PRN PRN Reason: Pain (severe 7-10) Neostigmine Methylsulfate (Neostigmine) Confirm Administered Dose 5 mg .ROUTE .STK-MED ONE Stop: 06/18/19 12:59 Non-Formulary Medication (Ubidecarenone) 100 mg PO DAILY [facility] Ondansetron HCl (Zofran) 4 mg IVPUSH ONETIME ONE Stop: 06/17/19 20:27 Last Admin: 06/17/19 20:30 Dose: 4 mg Ondansetron HCl (Zofran) Confirm Administered Dose 4 mg .ROUTE .STK-MED ONE Stop: 06/18/19 11:35 Ondansetron HCl (Zofran) 4 mg IVPUSH ONETIME PRN PRN Reason: Nausea/Vomiting Stop: 06/18/19 16:00 Propofol (Diprivan 20 Ml) Confirm Administered Dose 400 mg .ROUTE .STK-MED ONE Stop: 06/18/19 11:35 Rocuronium [place] (Zemuron) Confirm Administered Dose 50 mg .ROUTE .STK-MED ONE Stop: 06/18/19 11:35
--- NOTE | 2019-06-19 08:15 | PCM48HPAN ---
Post Anesthesia Note - EVALUATION WITHIN 48HRS OF ANESTHETIC Vital Signs in Normal Range: Yes Patient Participated in Evaluation: Yes Respiratory Function Stable: Yes Airway Patent: Yes Cardiovascular Function Stable: Yes Hydration Status Stable: Yes Pain Control Satisfactory: Yes Nausea and Vomiting Control Satisfactory: Yes Mental Status Recovered: Yes Vital Signs: Last Vital Signs Temp 36.4 C 06/19/19 04:29 Pulse 56 L 06/19/19 04:29 Resp 16 06/19/19 04:29 BP 101/49 L 06/19/19 04:29 Pulse Ox 90 L 06/19/19 04:29 - COMMENTS/OBSERVATIONS Free Text/Narrative:: no anesthesia complications noted
[2019-06-19 08:22] VITALS: PULSE 67
[2019-06-19] MEDS: Acetaminophen 325 MG Tab PO SCH (08:26)
[2019-06-19] MEDS: Carvedilol 3.125 MG Tab PO SCH (08:30)
[2019-06-19] MEDS: Tamsulosin 0.4 MG Cap.ER PO SCH (08:32)
[2019-06-19] MEDS: Heparin Sodium 5,000 Units/ML Vial SUBCUT SCH (08:36)
[2019-06-19 08:42] VITALS: BP 109/67
[2019-06-19] MEDS ORDERED: Finasteride 5 MG Tab PO SCH (09:00)
[2019-06-19] MEDS ORDERED: Pantoprazole 40 MG Tab.CR PO SCH (09:00)
[2019-06-19] MEDS ORDERED: Non-Formulary Medication 1 Each (Ubidecarenone 100 MG) PO SCH (09:00)
[2019-06-19] MEDS ORDERED: Aspirin 81 MG Tab.EC PO SCH (09:00)
[2019-06-19] MEDS ORDERED: Calcium Carbonate 600 MG Tab PO SCH (09:00)
[2019-06-20] MEDS ORDERED: Rosuvastatin 10 MG Tab PO SCH (09:00)
== END 2019-06-19 12:43 | disposition home or self-care (01) | DRG 418 ==
LOC: JD.ED 18:39 → JD.MS 06-18 00:29 → OBSVTOIN 06-18 11:52 → JD.MS 06-18 12:07
PROVIDERS: ADMIT Surgery; ATTEND Surgery
PROC: 0FT44ZZ Resection of Gallbladder, Percutaneous Endoscopic Approach (ICD-10-PCS; principal; 2019-06-18)
DX: K81.0 Acute cholecystitis (principal); K80.00 Calculus of gallbladder with acute cholecystitis without obstruction; H91.90 Unspecified hearing loss, unspecified ear; H54.7 Unspecified visual loss; C91.10 Chronic lymphocytic leukemia of B-cell type not having achieved remission; E78.00 Pure hypercholesterolemia, unspecified; I50.9 Heart failure, unspecified; N40.0 Benign prostatic hyperplasia without lower urinary tract symptoms; Z79.82 Long term (current) use of aspirin; Z90.49 Acquired absence of other specified parts of digestive tract; Z88.8 Allergy status to other drugs, medicaments and biological substances; Z87.891 Personal history of nicotine dependence; Z79.899 Other long term (current) drug therapy; Z98.41 Cataract extraction status, right eye; Z87.11 Personal history of peptic ulcer disease; Z98.42 Cataract extraction status, left eye
CPT/HCPCS: 36415 ×2; 74018; 74177; 76705; 80048; 80053; 82247; 82248; 83690; 85007; 85025; 85027; 93005; 96374; 96375; 99285; A9270 ×2; J0690; J1100; J1170; J1644; J1885; J2001; J2250; J2405 ×2; J2704; J3010; J3490; J7040; J7120 ×2; Q9967; J2710

== ENCOUNTER 2019-08-29 13:15 | Emergency (ER) | payer MEDICARE, OTHER ==
[2019-08-29] MEDS ORDERED: Ondansetron 4 MG/2 ML SDV IVPUSH ONE (13:19)
[2019-08-29] MEDS ORDERED: Sodium Chloride 0.9% 10 ML Syringe FLUSH PRN (13:24)
[2019-08-29 13:26] VITALS: BP 137/79; PULSE 70
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
[2019-08-29] MEDS ORDERED: Sodium Chloride 0.9% 10 ML Syringe FLUSH ONE (13:36)
[2019-08-29] MEDS ORDERED: Iopamidol 612 MG/ML 100 ML Bottle IVPUSH ONE (13:36)
[2019-08-29] MEDS ORDERED: Iopamidol 612 MG/ML 50 ML SDV IVPUSH ONE (13:36)
[2019-08-29] MEDS ORDERED: HYDROmorphone 0.5 MG/0.5 ML Syringe IVPUSH ONE (13:50)
[2019-08-29] MEDS ORDERED: Metoclopramide 10 MG/2 ML SDV IVPUSH ONE (14:47)
[2019-08-29] MEDS ORDERED: Metoclopramide 10 MG/2 ML SDV ONE (14:48)
[2019-08-29] MEDS ORDERED: fentaNYL 100 MCG/2 ML SDV IVPUSH ONE (14:53)
--- NOTE | 2019-08-29 14:54 | CT ---
CT cervical spine Technique: Multiple axial sections were obtained from above C1 inferiorly to the bottom of T1. Reconstructed sagittal and coronal images were reviewed. Comparison: No prior cervical spine imaging is available. Findings: Degenerative change is noted between the dens and anterior arch of C1. Severe disc space narrowing is noted at C4-C5, C5-C6 and C6-C7. Posterior osteophytes are seen most prominent at C6-C7. Scattered anterior osteophytes are noted most prominent at C5-C6 and C6-C7. Degenerative apophyseal change is noted throughout the cervical spine. Fracture is present within the left mastoid sinus with soft tissue density within the left mastoid sinus compatible with blood. Soft tissue density is also noted within the left middle ear cavity presumably representing additional blood. No displacement of any fractures fragments are seen. Soft tissue density also noted within the right middle ear cavity most likely pre-existing and chronic. No right-sided mastoid sinus fracture is seen. No fracture is seen within the cervical spine. Multiple levels of neural foraminal stenosis are seen. No abnormal subluxation is seen. Degenerative change noted within the uncovertebral joints most prominent at C4-C5, C5-C6 and C6-C7. Impression: 1. Diffuse degenerative change. 2. Fracture within the left mastoid sinus with soft tissue density within the left middle ear cavity and mastoid sinus presumably representing blood. 3. Soft tissue density within the right middle ear cavity which most likely is pre-existing as no right-sided fracture is seen. 4. No fracture noted within the cervical spine. Diagnostic code #3 This report was dictated in [place] Standard Time
--- NOTE | 2019-08-29 14:54 | CT ---
CT chest Technique: Multiple axial sections were obtained from above the lung apices inferiorly through the lung bases. Intravenous contrast was utilized. Comparison: Prior CT chest of 11/30/18. Findings: Mediastinum and hilar regions appear within normal limits. Atherosclerotic calcification is noted within the thoracic aorta. Coronary artery calcification is again seen. No pericardial thickening is identified. Slight atelectasis is seen posteriorly within both lung bases. Lungs otherwise are clear. No pulmonary contusion is seen. No pleural effusions are identified. There appears to be a very minimal pneumothorax on the left side. Fracture is noted within the posterior left 3rd rib. Small amount of adjacent subcutaneous air is seen within the chest wall around the 3rd rib fracture. No other definite rib fracture is appreciated. Degenerative change is noted within the thoracic spine. Sternum appears intact on the reconstructed sagittal images. Impression: 1. Nondisplaced fracture within the left 3rd rib. Small amount of subcutaneous air is seen within the adjacent chest wall. 2. Questionable minimal left-sided pneumothorax, recommend follow-up chest x-ray in 12 hours to reevaluate this finding. 3. Mild atelectasis within both posterior lungs. 4. No other acute abnormality is seen. Diagnostic code #3 CT abdomen and pelvis Technique: Multiple axial sections were obtained from above the dome of the diaphragm inferiorly through the pubic symphysis. Intravenous contrast was utilized. Comparison: Previous CT abdomen and pelvis exam of 12/01/18. Findings: Multiple cysts are seen within the liver. Low density abnormality is noted within the spleen measuring 1.9 cm which is stable from prior CT exam of uncertain etiology. Small hiatal hernia is noted. Adrenal glands show no nodule. Pancreas is within normal limits. Kidneys show symmetric contrast enhancement without hydronephrosis. Multiple cysts are seen within both kidneys. Aorta shows atherosclerotic change without aneurysm. No retroperitoneal adenopathy or mesenteric abnormalities are seen. No pelvic mass or adenopathy is seen. Diverticuli are seen within the sigmoid colon. Previous left lower abdominal wall surgery is seen. No free fluid is seen. Appendix not seen with surgical material noted off the tip of the cecum. Sagittal images shows a compression deformity within T12 which is an interval change from prior study and presumably is acute. Very minimal retrolisthesis of the the posterior vertebral line is seen into the central canal by about 4 mm. Degenerative change is scattered within the spine without other acute finding being seen. Degenerative change is noted within both hips. No hip fracture or pelvic fracture is appreciated. Impression: 1. Moderate compression deformity of T12 which is an interval change from prior CT exam. This presumably is acute. There is slight posterior bowing of the posterior vertebral line into the central canal by about 4 mm. This causes no central canal stenosis. 2. Other findings as noted above which appear stable from prior CT exam. No other acute finding is appreciated. Diagnostic code #3 This report was dictated in [place] Standard Time
--- NOTE | 2019-08-29 15:04 | CT ---
Head CT Technique: Multiple axial sections through the brain were obtained. Intravenous contrast was not utilized. Findings: Small subdural hematoma is noted along the right temporal and posterior parietal region. Small amount of adjacent parenchymal blood is seen as well as a small amount of subarachnoid blood. Subcutaneous air is noted intracranially. There is a fracture noted within the left mastoid sinus. Fracture also noted within the superior right mastoid sinus and within the right temporal bone. On cervical spine study the soft tissue density within the middle ear cavity was felt to be chronic although given the fracture that is seen on head CT this is felt to represent blood. The mastoid sinus fractures causes the intracranial air. No additional skull fracture is appreciated. Ventricles along with basal cisterns and sulci over the convexities are within normal limits for the patient's age. No midline shift is seen. There may be a minimal amount of blood within a subarachnoid region within the left temporal region. Impression: 1. Fractures within both mastoid sinuses causing blood within both middle ear cavities. These fractures cause mild intracranial air. 2. Small right-sided subdural hematoma along the right temporal and posterior parietal region. Small amount of adjacent parenchymal hemorrhage as well as a small amount of subarachnoid blood is also seen in this area. 3. No midline shift is appreciated. 4. Possible small amount of subarachnoid blood within the left temporal region. Diagnostic code #5 This report was dictated in [place] Standard Time
== END 2019-08-29 15:23 ==
LOC: JD.ED 13:15
DX: S06.5X1A Traumatic subdural hemorrhage with loss of consciousness of 30 minutes or less, initial encounter (principal); S06.6X1A Traumatic subarachnoid hemorrhage with loss of consciousness of 30 minutes or less, initial encounter; R40.2412 Glasgow coma scale score 13-15, at arrival to emergency department; S02.19XA Other fracture of base of skull, initial encounter for closed fracture; S27.0XXA Traumatic pneumothorax, initial encounter; S22.089A Unspecified fracture of T11-T12 vertebra, initial encounter for closed fracture; S22.32XA Fracture of one rib, left side, initial encounter for closed fracture; H91.93 Unspecified hearing loss, bilateral; I50.9 Heart failure, unspecified; E78.00 Pure hypercholesterolemia, unspecified; K27.9 Peptic ulcer, site unspecified, unspecified as acute or chronic, without hemorrhage or perforation; N40.0 Benign prostatic hyperplasia without lower urinary tract symptoms; Z88.8 Allergy status to other drugs, medicaments and biological substances; Z79.82 Long term (current) use of aspirin; Z79.899 Other long term (current) drug therapy; W00.0XXA Fall on same level due to ice and snow, initial encounter; Y92.89 Other specified places as the place of occurrence of the external cause
CPT/HCPCS: 36415; 70450; 71260; 72125; 74177; 80053; 83690; 85025; 85610; 85730; 96374; 96375; 99285; J1170; J2405; J2765; J3010; Q9967; 99284

== ENCOUNTER 2020-06-16 11:54 | Emergency (ER) | payer MEDICARE, OTHER ==
[2020-06-16 12:25] VITALS: BP 137/70; PULSE 59
[2020-06-16] MEDS ORDERED: Sodium Chloride 0.9% 10 ML Syringe FLUSH PRN (12:25)
--- NOTE | 2020-06-16 12:58 | CR ---
PROCEDURE INFORMATION: Exam: XR Chest, 1 View Exam date and time: 06/16/2020 12:15 PM Age: 80 years old Clinical indication: Chest pain; Patient HX: Covid+ TECHNIQUE: Imaging protocol: XR of the chest Views: 1 view. COMPARISON: CT Chest Abdomen Pelvis w Cont 08/29/2019 1:22 PM FINDINGS: Lungs: Atelectatic and/or early infiltrative changes noted within the lung bases bilaterally, greater on the right. The lungs are hyperinflated, consistent with underlying small airways disease. Pleural space: Unremarkable. No pleural effusion. No pneumothorax. Heart/Mediastinum: Unremarkable. No cardiomegaly. Bones/joints: The thoracic spine demonstrates mild degenerative changes at multiple levels. IMPRESSION: 1. Atelectatic and/or early infiltrative changes noted within the lung bases bilaterally, greater on the right. 2. The lungs are hyperinflated, consistent with underlying small airways disease. Thank you for allowing us to participate in the care of your patient. Dictated and Authenticated by: Cliff Falcon DO 06/16/2020 1:54 PM Central Time ([place] & [place]) [facility]
--- NOTE | 2020-06-16 13:48 | EDM.PDOC ---
ED HPI GENERAL MEDICAL PROBLEM - General Chief Complaint: Chest Pain Stated Complaint: SENT FROM [facility] L SIDE CHEST PAIN Time Seen by Provider: 06/16/20 12:16 Source of Information: Reports: Patient, RN Notes Reviewed History Limitations: Reports: No Limitations - History of Present Illness INITIAL COMMENTS - FREE TEXT/NARRATIVE: Patient is an 80-year-old male presenting to the emergency department with complaints of intermittent episodes of left-sided chest pain. Patient is known Covid positive. He was diagnosed 1 week ago today, however he did not develop symptoms until approximately 4 days ago. He complains of occasional burning in his nose with some postnasal drip that causes him to frequently clear his throat. Very occasional cough. Denies any shortness of breath, fevers, abdominal pain, nausea, vomiting, or diarrhea. Scribes intermittent episodes of left-sided chest pain. States they occur a few times a day and last about 30 minutes. He was seen at the walk-in clinic prior to coming here and sent here for evaluation as he was having chest pain at that time. He has no longer having any chest pain. He denies shortness of breath with the chest pain. He has a past medical history significant for CLL and "mild "CHF. Denies any history of KS or CAD. Left Chest Pain Score (Numeric/FACES): 2 - Related Data Allergies Allergy/AdvReac Type Severity Reaction Status Date / Time atorvastatin [From Lipitor] AdvReac Muscle Verified 06/16/20 12:25 Aches Home Meds: Home Meds Aspirin [Ecotrin EC] 81 mg PO DAILY 01/02/18 [History] Calcium Carbonate [Calcium] 1,250 mg PO DAILY 01/02/18 [History] Dutasteride [Avodart] 0.5 mg PO DAILY 01/02/18 [History] Flaxseed 1 dose PO DAILY 01/02/18 [History] Lutein 20 mg PO DAILY 01/02/18 [History] Omeprazole 20 mg PO DAILY 01/02/18 [History] Psyllium [Metamucil] 1 dose PO BEDTIME 01/02/18 [History] Rosuvastatin [Crestor] 5 mg PO MOWEFR 01/02/18 [History] Tamsulosin [Flomax] 0.4 mg PO BID 01/02/18 [History] carvediloL [Coreg] 3.125 mg PO BID 01/02/18 [History] Ubidecarenone [Coq-10] 100 mg PO DAILY 07/11/18 [History] L Acidophil/B Lactis/B Longum [Florajen3] 460 mg PO DAILY 08/29/19 [History] Past Medical History HEENT History: Reports: Hard of Hearing, Impaired Vision Other HEENT History: wears glasses and bilat hearing aides Cardiovascular History: Reports: Heart Failure, High Cholesterol Other Cardiovascular History: LBBB Respiratory History: Reports: None Gastrointestinal History: Reports: Colon Polyp, Diverticulosis, PUD Genitourinary History: Reports: BPH OXIDE FURNACE TENDER History: Reports: None Neurological History: Reports: None Psychiatric History: Reports: None Endocrine/Metabolic History: Reports: None Hematologic History: Reports: Other (See Below) Other Hematologic History: CLL Immunologic History: Reports: None Oncologic (Cancer) History: Reports: Leukemia, Other (See Below) Other Oncologic History: CLL,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 ear with removal Dermatologic History: Reports: Other (See Below) Other Dermatologic History: SKIN CANCER REMOVED FROM LEFT EAR - Infectious Disease History Infectious Disease History: Reports: Chicken Pox, Measles - Past Surgical History Head Surgeries/Procedures: Reports: None HEENT Surgical History: Reports: Cataract Surgery, Other (See Below) Other HEENT Surgeries/Procedures: Bilat Cardiovascular Surgical History: Reports: None Respiratory Surgical History: Reports: None GI Surgical History: Reports: Appendectomy, Colonoscopy, Hernia, Abdominal, Hernia, Inguinal, Other (See Below) Other GI Surgeries/Procedures: Hernia repair, Periumbilical, Ventral and Inguinal Male Surgical History: Reports: None Endocrine Surgical History: Reports: None Neurological Surgical History: Reports: None Musculoskeletal Surgical History: Reports: Shoulder Surgery Other Musculoskeletal Surgeries/Procedures:: Rotator cuff repair bilat Oncologic Surgical History: Reports: None Dermatological Surgical History: Reports: None Social & Family History - Family History Family Medical History: No Pertinent Family History GI: Reports: Pancreatitis - Tobacco Use Tobacco Use Status *Q: Never Tobacco User - Caffeine Use Caffeine Use: Reports: None - Recreational Drug Use Recreational Drug Use: No - Living Situation & Occupation Living situation: Reports: , with Spouse Occupation: Retired ED ROS GENERAL - Review of Systems Review Of Systems: See Below Constitutional: Denies: Fever, Chills, Weakness HEENT: Reports: Sinus Problem (post nasal drip causing him to need to clear his throat) Respiratory: Reports: Cough (mild). Denies: Shortness of Breath, Wheezing, Pl euritic Chest Pain Cardiovascular: Reports: Chest Pain (mild, intermittent). Denies: Dyspnea on Exertion Endocrine: Reports: No Symptoms GI/Abdominal: Reports: No Symptoms : Reports: No Symptoms Musculoskeletal: Reports: No Symptoms Skin: Reports: No Symptoms Neurological: Reports: No Symptoms Psychiatric: Reports: No Symptoms Hematologic/Lymphatic: Reports: No Symptoms Immunologic: Reports: No Symptoms ED EXAM, GENERAL - Physical Exam Exam: See Below General Appearance: Alert, WD/WN, No Apparent Distress Eye Exam: Bilateral Eye: PERRL Respiratory/Chest: No Respiratory Distress, Lungs Clear, Normal Breath Sounds, No Accessory Muscle Use, Chest Non-Tender Cardiovascular: Normal Peripheral Pulses, Regular Rate, Rhythm, No Edema, No Gallop, No JVD, No Murmur, No Rub GI/Abdominal: Normal Bowel Sounds, Soft, Non-Tender, No Organomegaly, No Distention, No Abnormal Bruit, No Mass Neurological: Alert, Oriented, CN II-XII Intact, Normal Cognition, Normal Gait, Normal Reflexes, No Motor/Sensory Deficits Psychiatric: Normal Affect, Normal Mood Skin Exam: Warm, Dry, Intact, Normal Color, No Rash #1 Interpretation EKG Date: 06/16/20 Time: 12:23 Rhythm: Other (sinus arrhythmia) Rate (Beats/Min): 61 [place]: Normal P-Wave: Present QRS: LBBB ST-T: Normal QT: Normal Course - Vital Signs Last Recorded V/S: Last Vital Signs Temp 96.8 F L 06/16/20 12:22 Pulse 59 L 06/16/20 12:22 Resp 18 06/16/20 12:22 BP 137/70 06/16/20 12:22 Pulse Ox 98 06/16/20 12:22 - Orders/Labs/Meds Orders: Active Orders 24 hr Category Date Time Status Peripheral IV Insertion Adult [OM.PC] Stat Oth 06/16/20 12:25 Ordered Labs: Laboratory Tests 06/16/20 06/16/20 06/16/20 Range/Units 12:25 12:25 12:25 WBC 9.07 (4.23-9.07) K/mm3 RBC 4.47 L (4.63-6.08) M/mm3 Hgb 13.5 L D (13.7-17.5) gm/dl Hct 43.0 (40.1-51.0) % MCV 96.2 H (79.0-92.2) fl MCH 30.2 (25.7-32.2) pg MCHC 31.4 L (32.2-35.5) g/dl RDW Std Deviation 46.2 H (35.1-43.9) fL Plt Count 142 L (163-337) K/mm3 MPV 11.2 (9.4-12.3) fl Neut % (Auto) 26.0 L (34.0-67.9) % Lymph % (Auto) 66.7 H (21.8-53.1) % Steele % (Auto) 6.4 (5.3-12.2) % Eos % (Auto) 0.7 L (0.8-7.0) Baso % (Auto) 0.1 (0.1-1.2) % Neut # (Auto) 2.36 (1.78-5.38) K/mm3 Lymph # (Auto) 6.05 H (1.32-3.57) K/mm3 Steele # (Auto) 0.58 (0.30-0.82) K/mm3 Eos # (Auto) 0.06 (0.04-0.54) K/mm3 Baso # (Auto) 0.01 (0.01-0.08) K/mm3 Manual Slide Review Abnormal smear D-Dimer, Quantitative 0.42 (0.19-0.50) mg/L Sodium 139 (136-145) mEq/L Potassium 4.3 (3.5-5.1) mEq/L Chloride 105 (98-107) mEq/L Carbon Dioxide 26 (21-32) mEq/L Anion Gap 12.3 (5-15) BUN 18 (7-18) mg/dL Creatinine 0.9 (0.7-1.3) mg/dL Est Cr Clr Drug Dosing 71.85 mL/min Estimated GFR (MDRD) > 60 (>60) mL/min BUN/Creatinine Ratio 20.0 H (14-18) Glucose 93 (83-115) mg/dL Calcium 8.4 L (8.5-10.1) mg/dL Total Bilirubin 0.5 (0.2-1.0) mg/dL AST 16 (15-37) U/L ALT 27 (16-63) U/L Alkaline Phosphatase 84 (46-116) U/L Troponin I < 0.017 (0.00-0.056) ng/mL C-Reactive Protein 0.4 (<1.0) mg/dL NT-Pro-B Natriuret Pep (0-450) pg/mL Total Protein 6.2 L (6.4-8.2) g/dl Albumin 3.3 L (3.4-5.0) g/dl Globulin 2.9 gm/dL Albumin/Globulin Ratio 1.1 (1-2) 06/16/20 Range/Units 12:25 WBC (4.23-9.07) K/mm3 RBC (4.63-6.08) M/mm3 Hgb (13.7-17.5) gm/dl Hct (40.1-51.0) % MCV (79.0-92.2) fl MCH (25.7-32.2) pg MCHC (32.2-35.5) g/dl RDW Std Deviation (35.1-43.9) fL Plt Count (163-337) K/mm3 MPV (9.4-12.3) fl Neut % (Auto) (34.0-67.9) % Lymph % (Auto) (21.8-53.1) % Steele % (Auto) (5.3-12.2) % Eos % (Auto) (0.8-7.0) Baso % (Auto) (0.1-1.2) % Neut # (Auto) (1.78-5.38) K/mm3 Lymph # (Auto) (1.32-3.57) K/mm3 Steele # (Auto) (0.30-0.82) K/mm3 Eos # (Auto) (0.04-0.54) K/mm3 Baso # (Auto) (0.01-0.08) K/mm3 Manual Slide Review D-Dimer, Quantitative (0.19-0.50) mg/L Sodium (136-145) mEq/L Potassium (3.5-5.1) mEq/L Chloride (98-107) mEq/L Carbon Dioxide (21-32) mEq/L Anion Gap (5-15) BUN (7-18) mg/dL Creatinine (0.7-1.3) mg/dL Est Cr Clr Drug Dosing mL/min Estimated GFR (MDRD) (>60) mL/min BUN/Creatinine Ratio (14-18) Glucose (83-115) mg/dL Calcium (8.5-10.1) mg/dL Total Bilirubin (0.2-1.0) mg/dL AST (15-37) U/L ALT (16-63) U/L Alkaline Phosphatase (46-116) U/L Troponin I (0.00-0.056) ng/mL C-Reactive Protein (<1.0) mg/dL NT-Pro-B Natriuret Pep 213 (0-450) pg/mL Total Protein (6.4-8.2) g/dl Albumin (3.4-5.0) g/dl Globulin gm/dL Albumin/Globulin Ratio (1-2) Meds: Medications Discontinued Medications Generic Name Dose Route Start Last Admin Trade Name Froylanq PRN Reason Stop Dose Admin Bamlanivimab 700 mg/ Sodium 200 mls @ 200 mls/hr 06/16/20 14:30 06/16/20 14:13 Chloride IV 06/16/20 15:29 200 mls/hr ONETIME ONE Administration Protocol Sodium Chloride 10 ml 06/16/20 12:25 06/16/20 12:29 Saline Flush FLUSH 10 ml ASDIRECTED PRN Administration Keep Vein Open - Re-Assessments/Exams Free Text/Narrative Re-Assessment/Exam: Patient is an 80-year-old male presenting to the emergency department with complaints of intermittent left-sided chest pain. At the time of exam, the chest pain was not present. He was seen at the [place] walk-in clinic prior to coming to the ER and states he was having some mild pain at that time, therefore he was sent here for evaluation. Patient is known Covid positive. He was diagnosed 1 week ago, however he was asymptomatic at the time of his diagnosis. He developed some very minimal symptoms this last including burning in his nose, postnasal drip causing him to have to clear his throat frequently and a very occasional cough. He denies any shortness of breath, abdominal pain, nausea, vomiting, diarrhea, or fevers. Vital signs on triage were stable. Oxygen saturation was 98% on room air. He was afebrile at 96.8. I have ordered a cardiac work-up including CBC, CMP, CRP, D-dimer, troponin, chest x-ray, EKG. Based on patient's age, he does qualify for treatment with Bamlanivimad. Discussed this treatment and he is reviewing the patient information sheet. He will let us know if he decides to take this treatment. 06/16/20 13:48 Hematology was grossly unremarkable. Troponin and D-dimer were both negative. EKG showed no acute ischemia. He does have a left bundle branch block which he states has been chronic for him. X-ray shows atelectasis and/or early infiltrative changes noticed in the lung bases bilaterally, greater on the right. He also has hyperinflated lungs consistent with underlying small airway disease. I spoke with patient to provide information about bamlanivimab treatment I offered them the ``Patient and Caregiver EUA Bamlanivimad Fact Sheet to read and review I stated the drug has been approved by an emergency use authorization (EUA) process and has not fully been FDA reviewed or approved The patient meets the EUA requirements I discussed there are other potential treatment options that are currently not FDA approved to treat COVID-19. Offered opportunity to ask questions and all questions were answered Patient voiced understanding and agreed to proceed with treatment I have ordered Bamlanivimad 700 mg IV. Educated patient that this infuse over 1 hour and that he must be monitored for 1 hour following the treatment. We allow him to eat some lunch. Departure - Departure Time of Disposition: 16:19 Disposition: Home, Self-Care 01 Condition: Good Clinical Impression: COVID-19, Atypical chest pain - Discharge Information *PRESCRIPTION DRUG MONITORING PROGRAM REVIEWED*: No *COPY OF PRESCRIPTION DRUG MONITORING REPORT IN PATIENT IRVING: No Instructions: COVID-19 Frequently Asked Questions, COVID-19, Nonspecific Chest Pain, Adult, [id number] Referrals: Aroldo Tinajero MD [Primary Care Provider] - Forms: ED Department Discharge Additional Instructions: You were seen in the emergency department today for evaluation with regards to intermittent left-sided chest pain as well as a diagnosis of COVID-19. Work-up included blood work, EKG of your heart, and a chest x-ray. Results of your work-up were found to be normal. While in the ER, you received Bamlanivimad which is a monoclonal antibody used to prevent worsening of your Covid infection. Recommend that you monitor your oxygen saturations intermittently at home. You are maintaining an oxygen saturation below 90% or you experience any new or worsening symptoms of concern, you should return to the emergency department for reevaluation. Sepsis Event Note (ED) - Evaluation Sepsis Screening Result: No Definite Risk - My Orders Last 24 Hours: My Active Orders 06/16/20 12:25 Peripheral IV Insertion Adult [OM.PC] Stat - Assessment/Plan Last 24 Hours: My Active Orders 06/16/20 12:25 Peripheral IV Insertion Adult [OM.PC] Stat
== END 2020-06-16 16:40 | disposition home or self-care (01) ==
LOC: JD.ED 11:54
DX: U07.1 COVID-19 (principal); I50.9 Heart failure, unspecified; N40.0 Benign prostatic hyperplasia without lower urinary tract symptoms; E78.00 Pure hypercholesterolemia, unspecified; Z90.49 Acquired absence of other specified parts of digestive tract; Z88.8 Allergy status to other drugs, medicaments and biological substances; Z79.82 Long term (current) use of aspirin; Z79.899 Other long term (current) drug therapy
CPT/HCPCS: 36415; 71045; 80053; 83880; 84484; 85025; 85379; 86140; 93005; 96365; 99285; J7050